=== PATIENT | female | born 1940 | race Caucasian/White ===

== ENCOUNTER 2018-08-19 11:43 | Inpatient (IN) | payer SELFPAY ==
[2018-08-19 12:24] LABS: % BASOPHILS 0.8 % (0.0-2.0); % EOSINOPHILS 0.7 % (0.0-5.0); % LYMPHOCYTES 17.2 % (20.0-50.0); % MONOCYTES 9.3 % (2.0-10.0); BASOPHILE ABSOLUTE 0.1 Th/cumm (0-0.2); EOSINOPHILE ABSOLUTE 0.1 Th/cmm (0.1-0.4); HEMATOCRIT 42.7 % (41.0-60); HEMOGLOBIN 14.1 gm/dL (12-16); LYMPHOCYTE ABSOLUTE 1.4 Th/cmm (1.5-3.0); MEAN CELL VOLUME 86.2 fl (81-100); MEAN CORPUSCULAR HEMOGLOBIN 28.5 pg (27.0-31.0); MEAN CORPUSCULAR HGB CONC 33.1 pg (28.0-36.0); MEAN PLATELET VOLUME 8.1 fl; MONOCYTE ABSOLUTE 0.7 Th/cmm (0.3-1.0); NEUTROPHILE ABSOLUTE 5.7 Th/cmm (1.8-8.0); PLATELET COUNT 450 Th/cmm (150-400); RED BLOOD COUNT 4.95 Mil/cmm (3.80-5.20); RED CELL DISTRIBUTION WIDTH 12.4 % (11.5-20.0)
[2018-08-19] MEDS ORDERED: Metoprolol tartrate 1 mg/ml 5mL Amp IV STA (12:30)
[2018-08-19] MEDS ORDERED: Metoprolol tartrate 1 mg/ml 5mL Amp IV ONE (12:34)
[2018-08-19 12:39] LABS: ALB/GLOB RATIO 1.1 (1.0-1.8); ALBUMIN 3.4 gm/dL (3.7-5.3); ALKALINE PHOSPHATASE 100 U/L (34-104); ANION GAP 15.1 (7.0-16.0); BILIRUBIN,TOTAL 0.4 mg/dL (0.3-1.0); BUN - UREA NITROGEN 13 mg/dL (7-25); CALCIUM SERUM 9.1 mg/dL (8.6-10.3); CARBON DIOXIDE 25.2 mEq/L (21.0-31.0); CHLORIDE 100 mEq/L (98-107); CREATININE - SERUM 0.5 mg/dL (0.6-1.2); GLUCOSE 116 mg/dL (70-105); MAGNESIUM 1.8 mg/dL (1.9-2.7); PHOSPHOROUS 3.5 mg/dL (2.5-5.0); POTASSIUM SERUM 4.3 mEq/L (3.5-5.1); SGOT 16 U/L (13-39); SGPT/ALT 10 U/L (7-52); SODIUM SERUM 136 mEq/L (136-145); TOTAL PROTEIN,SERUM 6.4 gm/dL (6.0-8.3)
--- NOTE | 2018-08-19 12:41 | ED Physician Chart ---
ED Chief Complaint/HPI - Patient Information Date Seen:: 08/19/18 Time Seen:: 12:37 Chief Complaint:: elevated BP History of Present Illness:: elevated BP and coughing up of white phlegm Allergies:: Allergies Allergy/AdvReac Type Severity Reaction Status Date / Time No Known Allergies Allergy Verified 08/19/18 12:08 Vitals:: Vital Signs - 8 hr 08/19/18 08/19/18 08/19/18 11:48 12:24 12:34 Temp 98.8 F 98.8 F HR 114 108 114 RR 26 31 BP 206/80 224/80 O2 Sat % 94 92 Historian:: Patient, Family Member Review:: Nurse's Note Reviewed ED Review of Systems - Review of Systems General/Constitutional: No fever, No chills, No weight loss, Weakness, No diaphoresis, No edema, No loss of appetite Skin: No skin lesions, No rash, No bruising Head: No headache, No light-headedness Eyes: No loss of vision, No pain, No diplopia ENT: No earache, No nasal drainage, No sore throat, No tinnitus Neck: No neck pain, No swelling, No thyromegaly, No stiffness, No mass noted Cardio Vascular: No chest pain, No palpitations, No PND, No orthopnea, No edema Pulmonary: SOB, Cough, Sputum, No wheezing GI: No nausea, No vomiting, No diarrhea, No pain, No melena, No hematochezia, No constipation, No hematemesis G/U: No dysuria, No frequency, No hematuria Musculoskeletal: No bone or joint pain, No back pain, No muscle pain Endocrine: No polyuria, No polydipsia Psychiatric: No prior psych history, No depression, No anxiety, No suicidal ideation Hematopoietic: No bruising, No lymphadenopathy Allergic/Immuno: No urticaria, No angioedema Neurological: No syncope, No focal symptoms, No weakness, No paresthesia, No headache, No seizure, No dizziness, No confusion, No vertigo ED Past Medical History - Past Medical History Obtainable: Yes Past Medical History: HTN Family Medical History - Family Member Mother History Unknown: Yes ED Physical Exam - Physical Examination General/Constitutional: Awake, Well-developed, well-nourished, Alert, GCS 15, Non-toxic appearing, Ambulatory Other Gen/Cons comments:: occasional coughing. slightly elevated respiratory rate. able to talk with full sentences. Head: Atraumatic Eyes: Lids, conjuctiva normal, PERRL, EOMI Skin: Nl inspection, No rash, No skin lesions, No ecchymosis, Well hydrated, No lymphadenopathy ENMT: External ears, nose nl Neck: Nontender, No nuchal rigidity, No stridor Other Respiratory comments:: no breath sounds heard on ED Labs/Radiology/EKG Results - Lab Results Results: Laboratory Tests 08/19/18 12:16 WBC 8.0 RBC 4.95 Hgb 14.1 Hct 42.7 MCV 86.2 MCH 28.5 MCHC Differential 33.1 RDW 12.4 Plt Count 450 H MPV 8.1 Neutrophils % 72.0 Lymphocytes % 17.2 L Monocytes % 9.3 Eosinophils % 0.7 Basophils % 0.8 ED Assessment - Assessment General Assessment: EKG FROM 12:18:41 p.m. reveals a complete white out of the L lung field with a possible pneumothorax of the apex. CXR from my reading: complete white out of left lung with a probable pneumothorax at the left apex. spoke with Dr. Patel application systems administrator who said that he would transfer the patient to a higher level of care since he doesn't know how to manage chest tubes; we do not have a chest surgeon on staff and the patient's blood pressure is critically high at [address] Patel is chief physical therapist. spoke at 12:45 p.m. spoke with [facility] at 12:50 p.m. who asked for paper work to be faxed to them at [phone]. ED Septic Shock - . Is Septic Shock (SBP<90, OR Lactate>4 mmol\L) present?: No - <6hrs of presentation: Vital Signs: Vital Signs - 8 hr 08/19/18 08/19/18 08/19/18 11:48 12:24 12:34 Temp 98.8 F 98.8 F HR 114 108 114 RR 26 31 BP 206/80 224/80 O2 Sat % 94 92 ED Reassessment (Disposition) - Reassessment Reassessment Condition:: Improved - Diagnosis Diagnosis:: Malignant hypertension Complete white out of left lung field with suspected effusion and left apical pneumothorax. Hypoxia with room air sats of 90%. Thrombocytosis Elevated d-dimer.
[2018-08-19 12:57] LABS: INR 0.94 (0.5-1.4); PROTHROMBIN TIME (TEST) 9.8 SECONDS (9.5-11.5)
[2018-08-19] MEDS ORDERED: IOHEXOL 350mgI/mL 150mL IV ONE (13:40)
[2018-08-19] MEDS ORDERED: cefTRIAXone 1 GM in Sodium Chloride 0.9% 50 ML IV ONE ×2 (14:17→14:53)
[2018-08-19 15:41] LABS: URINE SOURCE MIDSTREAM
[2018-08-19 15:48] LABS: URINE BILIRUBIN NEGATIVE (NEGATIVE); URINE BLOOD NEGATIVE (NEGATIVE); URINE GLUCOSE (UA) NEGATIVE (NEGATIVE); URINE KETONE 40 mg/dL (NEGATIVE); URINE LEUKOCYTE ESTERASE TRACE (NEGATIVE); URINE MICROSCOPIC INDICATED? YES; URINE NITRATE POSITIVE (NEGATIVE); URINE PROTEIN NEGATIVE (NEGATIVE); URINE UROBILINOGEN 0.2 E.U./dL (0.2 - 1.0)
[2018-08-19 15:55] LABS: URINE CLARITY HAZY (CLEAR); URINE COLOR YELLOW
[2018-08-19 15:57] LABS: URINE BACTERIA MANY /hpf (NONE SEEN); URINE EPITHELIAL CELLS FEW /lpf (FEW); URINE RBC 0-2 /hpf (0-5)
[2018-08-19] MEDS: Hydrocodone/APAP 5mg/325mg Tab PO PRN (16:37)
[2018-08-19] MEDS: Morphine Sulfate 2 mg/mL 1mL Syr IVP PRN (21:09)
[2018-08-20] MEDS: Morphine Sulfate 2 mg/mL 1mL Syr IVP PRN ×2 (01:13→22:23)
[2018-08-20] MEDS ORDERED: IOHEXOL 300mgI/mL 100 ML VIAL ONE (07:15)
--- NOTE | 2018-08-20 07:41 | Diagnostic Imaging Report ---
Exam: Portable chest x-ray HISTORY: Shortness of breath. Findings: Portable examination of the chest at 1227 reviewed, no prior studies available for comparison. The study demonstrates complete opacification left hemithorax with the pneumonia atelectasis and or pleural effusion. Clinical correlation recommended. A small lucency in the right apex might be related to small pneumothorax. The right lung parenchyma is well aerated. Bony thorax intact. Mediastinal structures midline IMPRESSION: Complete opacification left hemithorax might be due to atelectasis pneumonia or superimposed effusion. Small lucency in the right apex might represent loculated pneumothorax. Clinical correlation recommended.
--- NOTE | 2018-08-20 07:46 | Diagnostic Imaging Report ---
Exam: CTA examination of the chest. HISTORY: Shortness of breath, pulmonary embolism Total DLP equals 219 CTDI equals 5.8 Findings: Multiple contiguous thin section of the chest were obtained with administration of contrast material per pulmonary artery embolus protocol. The study demonstrates a normal opacification of great vessels of the neck. The pulmonary parenchyma demonstrates complete opacification of the left hemithorax with large left pleural effusion compressive atelectasis and collapse pneumonia. The pulmonary vasculature demonstrates normal opacification of pulmonary arteries bilaterally. There is no evidence of pulmonary emboli. The right lung parenchyma is well aerated. Bony thorax is intact. The visualized upper abdomen is intact. IMPRESSION: No evidence of pulmonary emboli, almost complete opacification left hemithorax effusion atelectasis and pneumonia. Clinical correlation recommended.
--- NOTE | 2018-08-20 07:53 | Diagnostic Imaging Report ---
Exam: Portable chest x-ray HISTORY: Placement of the left chest tube COMPARISON: 08/19/2018 Findings: Portable summation of chest at 1633 hours reviewed and compared to the prior study the same day earlier, demonstrates left-sided pneumothorax approximately 50%. Left chest tube is noted extending across the midline. Clinical correlation and repositioning of the chest tube is recommended. Overall there is decrease in left-sided pleural effusion described on prior examination. The right lung parenchyma is well aerated. Mediastinal structures midline the heart is not enlarged. Bony thorax intact. IMPRESSION. Consolidation pneumonia with collapse left lung is approximately 50% pneumothorax. Left chest tube is noted coursing midline. Repositioning of chest tube is recommended.
[2018-08-20] MEDS ORDERED: Pneumococcal Vaccine 0.5 mL Vial IM ONE (09:00)
[2018-08-20] MEDS ORDERED: Influenza Vaccine (65 yr & older) 0.5 ml Syr IM ONE (09:00)
--- NOTE | 2018-08-20 10:01 | Diagnostic Imaging Report ---
CT Chest without IV contrast HISTORY: Pleural effusion COMPARISON: CT of the chest performed on 08/19/2018. Technique: Axial images were obtained from the base of the neck to the upper abdomen without IV contrast. Reconstructions were made. Total DLP 163, CTD I 4.9 Findings: Borderline prominent mediastinal lymph nodes are noted. There is significant decrease in size of left pleural effusion. A new left-sided chest tube has been placed entering the left lateral lung and terminating along the anterior/medial aspect of the left thorax adjacent to the prevascular space. There is estimated at 15-20% left anterior pneumothorax along the tract of patient's chest tube. There is a very large area of ill-defined consolidation throughout the left upper lobe measuring 10.2 x 6.3 cm encasing the left hilum and vasculature and bronchi with mass effect upon the bronchi and postobstructive consolidation and pneumonia in this region. Additional left lung infiltrates are noted. Small left effusion is also noted. Ill-defined right basal irregular pleural thickening is also noted. There is also a 7 mm nodule right lung base (image 53, series 4). Mild cardiomegaly is noted with mild atherosclerosis. There is elevation of the right hemidiaphragm. Subcutaneous emphysema along the left lateral chest wall is noted. Degenerative changes of the spine are noted. There is probable developing Schmorl's node along the inferior endplate of the T11 vertebral body The upper abdomen demonstrate atherosclerosis. There appears to be vicarious excretion of contrast into the gallbladder. IMPRESSION: Interval new left-sided chest tube placement with significant decrease in previous large left pleural effusion. There is associated left anterior pneumothorax measuring up to 15 to 20%. The left chest tube terminates along the area of the pneumothorax along the anterior/medial lung zone with tip adjacent to the prevascular space. Very large ill defined area of consolidation and irregularity throughout the left upper lobe encasing the left hilum and vasculature and bronchi most suggestive of malignancy. Additional left upper lobe infiltrates are also noted. Irregular areas of right basal pleural thickening which may be due to infectious or neoplastic process. 7 mm right basal nodule is also noted which is nonspecific however malignancy cannot be excluded. Small left pleural effusion. Subcutaneous emphysema along the left lateral chest wall due to patient's chest tube placement. Borderline prominent mediastinal lymph nodes. Mild cardiomegaly and mild atherosclerotic vascular disease.
--- NOTE | 2018-08-20 10:02 | Diagnostic Imaging Report ---
CHEST X-RAY: AP view INDICATION: Pleural effusion COMPARISON: Chest CT earlier the same day FINDINGS: Left chest tube has been slightly pulled back with decrease in size of left pneumothorax. Extensive left lung infiltrates and mass lesion is again noted with small left effusion. Cardiomegaly is noted. IMPRESSION: Left chest tubes has been slightly pulled back. There is decreasing left-sided pneumothorax with probable residual pneumothorax along the left apex estimated at 20% Left lung mass and infiltrates. Please refer to recent CT for further details.
[2018-08-20] MEDS ORDERED: Albuterol Nebulizer 2.5mg/3mL HHN PRN (17:39)
[2018-08-20] MEDS ORDERED: Albuterol Nebulizer 2.5mg/3mL HHN SCH (19:00)
--- NOTE | 2018-08-20 19:05 | Consultation ---
DATE OF CONSULTATION: 08/19/2018 PULMONARY/CRITICAL CARE CONSULTATION NOTE REASON FOR CONSULTATION: Abnormal chest x-ray. HISTORY OF PRESENT ILLNESS: This is a 78-year-old female who only speaks Armenian. Most of the information is obtained by talking to the patient's granddaughter was fixing list has been having shortness of breath for the last couple of weeks. Over the time, she got more worse. The patient was coughing, but nonproductive. Denied of any chest pain. No fever. Does not recall of any significant change in weight. Denied of any wheezing. Denied of any night sweats. Denied of any swelling of the legs, denied of any palpitation, denied of any hemoptysis or denied of any back pain, etc. Subsequently, the patient came to the Emergency Room, where the patient was evaluated. There was a large pleural effusion on the left side. Subsequently admitted and I was asked to see this patient for further care and necessary treatment. PAST MEDICAL HISTORY: Nil. ALLERGIES: Nil. MEDICATIONS: Some antitussive medication and not taking any regular medicine for systemic illness. ALLERGIC HISTORY: Nil. SOCIAL HISTORY: Still smoking. PHYSICAL EXAMINATION: GENERAL: This is an elderly looking female, awake, alert, oriented, and comfortable. Chest tube in the right side. VITAL SIGNS: Temperature is 99.1, her pulse is in the 80s, blood pressure 118/86, respirations in low 20s, saturation 99 on 2 liters per minute. HEENT: Head is essentially unremarkable. Pupils appears to be equal and reactive to light. Oral cavity shows small oropharyngeal opening. NECK: No palpable nodes in the neck could be palpated. JVP not visualized. CHEST: Shows a chest tube on the left side. On auscultation, there is a diminished air entry. There is some air leak through the chest tube in the Pleur-evac. Right side appears to be clear. HEART: Slightly tachycardic. ABDOMEN: Soft, nontender. EXTREMITIES: Shows no peripheral edema, no cyanosis or clubbing could be appreciated. LABORATORY DATA: The patient's pertinent laboratory studies, WBC is 8000, platelets 450, D-dimer is 1600. Creatinine is 0.2. Sugar is 116. BNP is 128, albumin is 3.4 and the urine nitrite is positive and urine does show multiple bacteria. Chest x-ray reviewed ____ appears to be possibly significant consolidation, question is pneumonia versus possibly neoplasm. PLANS AND SUGGESTIONS: We will go ahead and continue chest tube drainage, supportive care, okay to be in the regular floor with a pleurovac suctioning. We will await for cytology from the ____ and also the cultures, etc. and see what that shows pending further recommendation will be issued and go from there. JOB# [id number]
[2018-08-20] MEDS: Budesonide 0.5 Mg/2 mL Ud HHN SCH (19:18)
[2018-08-20] MEDS: Albuterol/Ipratropium Neb 3 ML AERS HHN SCH (19:19)
--- NOTE | 2018-08-21 01:03 | History & Physical ---
ADMIT DATE: 08/19/2018 ICU bed 9. CHIEF COMPLAINT: Shortness of breath. HISTORY OF PRESENT ILLNESS: A 78-year-old female with prior history of hypertension, who lives at home, was brought to Emergency Room for evaluation of shortness of breath. The patient is predominantly Hebrew speaking. I used the Hebrew speaking nursing staff for communications. The patient stated that she has been sick for the past few days. The patient did say that she tried some [id number] medications for cough, congestion, did not help; in fact progressively her condition got worse. So, the patient was brought to Emergency Room. Emergency Room evaluation, the patient noted to have large pleural effusions with consolidations or possible empyema. The patient was seen by cardiothoracic surgeon. She had a chest tube placement and subsequently admitted to ICU for further evaluation and treatment. The patient says she feels better than she came in with, still denies any trouble breathing. No chest pain, no fever, no palpitations, no dizziness, no nausea, no vomiting or other complaints. PAST MEDICAL HISTORY: Hypertension. PAST SURGICAL HISTORY : No significant past surgical history reported FAMILY HISTORY: Noncontributory. SOCIAL HISTORY: Lives at home. Denies any alcohol, tobacco, or any drug use. CURRENT MEDICATIONS: Per medication list. ALLERGIES: No known drug allergies. REVIEW OF SYSTEMS: As are HPI, 12-point system review is negative. PHYSICAL EXAMINATION: VITAL SIGNS: Temperature 99.3, pulse 86, respirations 20, blood pressure of 115/57, 98% with nasal cannula 2 liters. GENERAL APPEARANCE: This patient does not seem in acute distress, lying comfortably in bed. HEENT: No neck stiffness. Negative for JVD. CHEST: Bilateral rales noted. Decreased air entry, left side. HEART: S1, S2 normal. Regular rhythm. ABDOMEN: Soft, nontender. NEUROLOGIC: Grossly non focal EXTREMITIES: No edema. Good peripheral pulses, negative for any calf tenderness. Negative for any lower extremities cellulite. LABORATORY DATA: WBC is 8.0, hemoglobin 14, hematocrit is 42.7, platelet count is 450. PT 9 and INR 0.9. D-dimer 1600. Sodium 130, potassium 4.3, BUN 3.5, calcium 9.1, AST 16, ALT 10, albumin 3.0 and positive for nitrite, trace leukocyte esterase, bacteria many. ASSESSMENT: 1. Large right pleural effusions. 2. Pneumonia. 3. Urinary tract infection. 4. Hypertension. PLAN: The patient had a chest tube placement. Pleural fluid was drained and sent for pathology and other microbiology testing. We will follow up on the final cytology and microbiology results. The patient is on empiric antibiotic, breathing treatment including albuterol and inhaled cortisol will be given. The patient was seen by CT surgery and thermodynamics teacher. Follow up labs and chest x-ray. CT angio was done and negative for any PE. CT chest, right-sided consolidation with pleural effusions, possible malignancy. The patient was started on beta samuel and hydralazine IV, admitted for high blood pressures. Discussed with the patient regarding the condition and plan of care with nursing staff. JOB# [id number] MTDJeana
[2018-08-21 04:32] LABS: % BASOPHILS 0.6 % (0.0-2.0); % EOSINOPHILS 2.8 % (0.0-5.0); % LYMPHOCYTES 18.6 % (20.0-50.0); % MONOCYTES 10.9 % (2.0-10.0); % NEUTROPHILS 67.1 % (40.0-80.0); BASOPHILE ABSOLUTE 0.1 Th/cumm (0-0.2); EOSINOPHILE ABSOLUTE 0.3 Th/cmm (0.1-0.4); HEMATOCRIT 42.5 % (41.0-60); HEMOGLOBIN 13.6 gm/dL (12-16); LYMPHOCYTE ABSOLUTE 1.7 Th/cmm (1.5-3.0); MEAN CELL VOLUME 86.8 fl (81-100); MEAN CORPUSCULAR HEMOGLOBIN 27.9 pg (27.0-31.0); MEAN CORPUSCULAR HGB CONC 32.1 pg (28.0-36.0); MEAN PLATELET VOLUME 8.5 fl; NEUTROPHILE ABSOLUTE 6.3 Th/cmm (1.8-8.0); PLATELET COUNT 438 Th/cmm (150-400); RED CELL DISTRIBUTION WIDTH 12.9 % (11.5-20.0); WHITE BLOOD COUNT 9.4 Th/cmm (4.8-10.8)
[2018-08-21 05:09] LABS: ALBUMIN 2.8 gm/dL (3.7-5.3); ALKALINE PHOSPHATASE 75 U/L (34-104); ANION GAP 14.7 (7.0-16.0); BILIRUBIN,TOTAL 0.4 mg/dL (0.3-1.0); BUN - UREA NITROGEN 23 mg/dL (7-25); CALCIUM SERUM 8.8 mg/dL (8.6-10.3); CARBON DIOXIDE 24.4 mEq/L (21.0-31.0); CHLORIDE 106 mEq/L (98-107); CREATININE - SERUM 0.7 mg/dL (0.6-1.2); GLUCOSE 105 mg/dL (70-105); POTASSIUM SERUM 4.1 mEq/L (3.5-5.1); SGOT 17 U/L (13-39); SGPT/ALT 9 U/L (7-52); SODIUM SERUM 141 mEq/L (136-145); TOTAL PROTEIN,SERUM 5.6 gm/dL (6.0-8.3)
[2018-08-21] MEDS: Albuterol/Ipratropium Neb 3 ML AERS HHN SCH ×4 (06:45→18:43)
[2018-08-21] MEDS: Pantoprazole 40 mg EC Tab PO SCH (06:57)
[2018-08-21] MEDS: Morphine Sulfate 2 mg/mL 1mL Syr IVP PRN ×3 (06:57→22:36)
[2018-08-21] MEDS: Budesonide 0.5 Mg/2 mL Ud HHN SCH ×2 (07:08→19:06)
--- NOTE | 2018-08-21 08:10 | Diagnostic Imaging Report ---
Exam: Portable chest x-ray HISTORY: Left chest tube insertion. Prior exam: 0 2 0/ 19 Findings: Portable examination of the chest at 0 724 demonstrates left-sided apical pneumothorax approximately 20-30%. Left chest tube again noted unchanged in appearance when compared to prior examination day earlier. The congestion has decreased. IMPRESSION: Left upper lobe pneumothorax increased to 20-30%, despite of left chest tube. Consolidation left lung. Decrease in congestion. Clinical correlation and repositioning of chest tube might be helpful.
[2018-08-21] MEDS: Hydrocodone/APAP 5mg/325mg Tab PO PRN (08:29)
[2018-08-21 09:38] LABS: ALLEN TEST Y
--- NOTE | 2018-08-21 13:52 | Consultation ---
DATE OF CONSULTATION: 08/19/2018 SURGEON: Dr. Gio Dias. REFERRING PHYSICIAN: Dr. Patel. HISTORY OF PRESENT ILLNESS: The patient is a 78-year-old female who presented to [facility] complaining of shortness of breath. Workup including a chest CT scan demonstrated a large left-sided pleural effusion with a complete left lung atelectasis. Thoracic Surgery was then consulted for further evaluation. PAST MEDICAL HISTORY: Notable for hypertension. PAST SURGICAL HISTORY: Notable for a hysterectomy. ALLERGIES: The patient has no known drug allergies. MEDICATIONS: Reviewed. FAMILY HISTORY AND SOCIAL HISTORY: The patient is from [place] and she lives with her family in [place], [place]. PHYSICAL EXAMINATION: VITAL SIGNS: She is noted to be afebrile. Her vitals are within normal limits. CARDIAC: Regular rate and rhythm. No gallop or murmur. RESPIRATORY: Clear to auscultation on the right with decreased crackles noted on the left. ABDOMEN: Soft, nondistended, nontender with normoactive bowel sounds. EXTREMITIES: No evidence of cyanosis, clubbing or edema. LABORATORY STUDIES: Performed on 08/19/2018, showed WBC of 8.0, hemoglobin 14, hematocrit of 42 and a platelet count of [address] scan demonstrated a complete left lung atelectasis with a large left-sided pleural effusion. There is no evidence of pulmonary embolism. ASSEMENT AND PLAN: This is a 78-year-old female who presented to the Emergency Room at [facility] with a large left-sided pleural effusion. The patient was evaluated at the bedside. After reviewing the clinical database, I will proceed to place a left chest tube for decompression. Thank you for referring this patient to my attention. If there are any questions in regards to this patient's clinical care, please do not hesitate to contact me. JOB# [id number]
--- NOTE | 2018-08-21 13:52 | Operative Report ---
DATE OF SURGERY: 08/19/2018 PREOPERATIVE DIAGNOSIS: Left pleural effusion. POSTOPERATIVE DIAGNOSIS: Left pleural effusion. PROCEDURE PERFORMED: 1. Left thoracostomy. 2. Intercostal nerve block. The patient is a 78-year-old female who presented to the Emergency Room at [facility] complaining of shortness of breath. Workup including a chest CT scan demonstrated large pleural effusion and thoracic Surgery was then consulted for placement of a chest tube. After obtaining informed consent, the patient was then placed in the right lateral decubitus position and prepped and draped in the usual sterile fashion. A 40 mL of 1% lidocaine was used to perform the local anesthesia in the usual fashion. A 1 cm incision was made at the fourth intercostal space mid axillary line. Dissection was then carried down to the subcutaneous tissue. Entry into the left hemithorax was uneventful and a 28-Martiniquais chest tube was inserted towards the apex. The chest tube was anchored at the skin level using 2-0 silk suture and a dry dressing was applied. Immediately 2 liters out was evacuated and the chest tube was then clamped. A portion of this pleural effusion was submitted for microbiologic analysis and then remaining was submitted for cytology. The chest tube was clamped for 2-3 hours to allow equilibration. After 3-4 hours the chest tube was then reopened to drain an additional 500 mL at a given time. The patient tolerated the procedure well without any complications. Currently, she is awaiting for chest x-ray. [facility]# [id number] DOMINIC
--- NOTE | 2018-08-21 14:33 | Progress Notes ---
DATE: 08/21/2018 PULMONARY PROGRESS NOTE PROBLEM: 1. Left-sided lesion with a massive degree of effusion. 2. Suspect cancer. SYMPTOMS: Slight discomfort in the chest. Otherwise, no specific new symptomatology. PHYSICAL EXAMINATION: VITAL SIGNS: Temperature is 96.8, blood pressure 161/63, saturation is 95% on 2 liters. NECK: Veins not visualized. CHEST: Shows diminished air entry at bases. Still slight leak in the Pleur-Evac. IMAGING STUDIES: Chest x-ray shows some cicatricial changes with small local pneumothorax with some left upper lobe lesion. ASSESSMENT: Most likely this is cancer, doubt pneumonia. PLANS AND SUGGESTIONS: Discussed with Dr. Dias and I agree with CT-guided biopsy and okay to move to the step-down unit. JOB# [id number]
--- NOTE | 2018-08-21 20:50 | General Progress Note ---
Subjective - Review of Systems Service Date: 08/21/18 Subjective: Patient doing better denied any complaints family was at the bedside Objective - Results Result Diagrams: 08/21/18 04:15 08/21/18 04:15 Recent Labs: Laboratory Last Values WBC 9.4 Th/cmm (4.8-10.8) 08/21/18 04:15 RBC 4.90 Mil/cmm (3.80-5.20) 08/21/18 04:15 Hgb 13.6 gm/dL (12-16) 08/21/18 04:15 Hct 42.5 % (41.0-60) 08/21/18 04:15 MCV 86.8 fl (81-100) 08/21/18 04:15 MCH 27.9 pg (27.0-31.0) 08/21/18 04:15 MCHC Differential 32.1 pg (28.0-36.0) 08/21/18 04:15 RDW 12.9 % (11.5-20.0) 08/21/18 04:15 Plt Count 438 Th/cmm (150-400) H 08/21/18 04:15 MPV 8.5 fl 08/21/18 04:15 Neutrophils % 67.1 % (40.0-80.0) 08/21/18 04:15 Lymphocytes % 18.6 % (20.0-50.0) L 08/21/18 04:15 Monocytes % 10.9 % (2.0-10.0) H 08/21/18 04:15 Eosinophils % 2.8 % (0.0-5.0) 08/21/18 04:15 Basophils % 0.6 % (0.0-2.0) 08/21/18 04:15 PT 9.8 SECONDS (9.5-11.5) 08/19/18 12:16 INR 0.94 (0.5-1.4) 08/19/18 12:16 PTT (Actin FS) 27.0 SECONDS (26.0-38.0) 08/19/18 12:16 D-Dimer 1600 ng/mL (100-400) H 08/19/18 12:16 Specimen Source ARTERIAL 08/21/18 09:20 Sample Site Right Radial 08/21/18 09:20 pH 7.40 (7.35-7.45) 08/21/18 09:20 pCO2 41.0 mmHg (35.0-45.0) 08/21/18 09:20 pO2 90.0 mmHg (80.0-100.0) 08/21/18 09:20 HCO3 25.0 mEq/L (20.0-26.0) 08/21/18 09:20 Base Excess 0.4 mEq/L (-3.0-3.0) 08/21/18 09:20 O2 Saturation 97.0 % (92.0-100.0) 08/21/18 09:20 James Test Y 08/21/18 09:20 Vent Rate N/A 08/21/18 09:20 Inspired O2 28 08/21/18 09:20 Tidal Volume N/A 08/21/18 09:20 PEEP N/A 08/21/18 09:20 Pressure (ins/psv/peep) N/A 08/21/18 09:20 Critical Value D.THOMPSON 08/21/18 09:20 Sodium 141 mEq/L (136-145) 08/21/18 04:15 Potassium 4.1 mEq/L (3.5-5.1) 08/21/18 04:15 Chloride 106 mEq/L (98-107) 08/21/18 04:15 Carbon Dioxide 24.4 mEq/L (21.0-31.0) 08/21/18 04:15 Anion Gap 14.7 (7.0-16.0) 08/21/18 04:15 BUN 23 mg/dL (7-25) 08/21/18 04:15 Creatinine 0.7 mg/dL (0.6-1.2) 08/21/18 04:15 Est GFR ( Amer) TNP 08/21/18 04:15 Est GFR (Non-Af Amer) TNP 08/21/18 04:15 BUN/Creatinine Ratio 32.9 08/21/18 04:15 Glucose 105 mg/dL (70-105) 08/21/18 04:15 Whole Bld Lactic Acid 1.10 mmol/L (0.60-1.99) 08/19/18 12:16 Calcium 8.8 mg/dL (8.6-10.3) 08/21/18 04:15 Phosphorus 3.5 mg/dL (2.5-5.0) 08/19/18 12:16 Magnesium 1.8 mg/dL (1.9-2.7) L 08/19/18 12:16 Total Bilirubin 0.4 mg/dL (0.3-1.0) 08/21/18 04:15 AST 17 U/L (13-39) 08/21/18 04:15 ALT 9 U/L (7-52) 08/21/18 04:15 Alkaline Phosphatase 75 U/L (34-104) 08/21/18 04:15 Troponin I 0.01 ng/mL (0.01-0.05) 08/19/18 12:16 B-Natriuretic Peptide 128.0 pg/mL (5.0-100.0) H 08/19/18 12:16 Total Protein 5.6 gm/dL (6.0-8.3) L 08/21/18 04:15 Albumin 2.8 gm/dL (3.7-5.3) L 08/21/18 04:15 Globulin 2.8 gm/dL 08/21/18 04:15 Albumin/Globulin Ratio 1.0 (1.0-1.8) 08/21/18 04:15 Carcinoembryonic Ag 5.6 ng/mL (0.0-4.7) H 08/20/18 19:27 Urine Source MIDSTREAM 08/19/18 15:30 Urine Color YELLOW 08/19/18 15:30 Urine Clarity HAZY (CLEAR) 08/19/18 15:30 Urine pH 7.0 (4.6 - 8.0) 08/19/18 15:30 Ur Specific [place] 1.010 (1.005-1.030) 08/19/18 15:30 Urine Protein NEGATIVE mg/dL (NEGATIVE) 08/19/18 15:30 Urine Glucose (UA) NEGATIVE mg/dL (NEGATIVE) 08/19/18 15:30 Urine Ketones 40 mg/dL (NEGATIVE) H 08/19/18 15:30 Urine Blood NEGATIVE (NEGATIVE) 08/19/18 15:30 Urine Nitrate POSITIVE (NEGATIVE) H 08/19/18 15:30 Urine Bilirubin NEGATIVE (NEGATIVE) 08/19/18 15:30 Urine Urobilinogen 0.2 E.U./dL (0.2 - 1.0) 08/19/18 15:30 Ur Leukocyte Esterase TRACE (NEGATIVE) H 08/19/18 15:30 Urine RBC 0-2 /hpf (0-5) 08/19/18 15:30 Urine WBC 6-10 /hpf (0-5) H 08/19/18 15:30 Ur Epithelial Cells FEW /lpf (FEW) 08/19/18 15:30 Urine Bacteria MANY /hpf (NONE SEEN) H 08/19/18 15:30 - Physical Exam Vitals and I&O: Vital Signs Temp 98.7 F 08/21/18 20:00 Pulse 84 08/21/18 20:00 Resp 20 08/21/18 20:00 BP 153/52 08/21/18 20:00 Pulse Ox 99 08/21/18 20:00 Intake & Output 08/21/18 08/21/18 08/22/18 06:59 18:59 06:59 Intake Total 320 600 Output Total 530 60 Balance -210 540 Weight (lbs) 51.256 kg 51.256 kg Intake: Intake, IV Amount 200 100 Piperacillin Sodium/ 200 100 Tazobact 4.5 gm In Sodium Chloride 0.9% 100 ml @ 100 mls/hr IV Q8HR [facility] Rx #:[id number] Oral 120 500 Output: Chest Tube Drainage 30 60 Left Lateral Chest 30 60 Urine 500 Other: # Voids 3 1 # Bowel Movements 0 0 Weight Source Bedscale Bedscale Active Medications: Current Medications Acetaminophen/Hydrocodone Bitart ([place] 5mg/325mg) 1 tab PO Q4H PRN PRN Reason: Pain (Moderate) Stop: 10/18/18 16:13 Last Admin: 08/21/18 08:29 Dose: 1 tab Albuterol Sulfate (Albuterol 2.5mg/3ml Neb Ud) 2.5 mg HHN Q2H PRN PRN Reason: Respiratory Distress Stop: 10/19/18 17:38 Last Admin: 08/20/18 19:17 Dose: 2.5 mg Albuterol/Ipratropium (Duoneb Neb) 3 ml HHN [id number] [facility] Stop: 10/19/18 18:59 Last Admin: 08/21/18 18:43 Dose: 3 ml Budesonide (Pulmicort) 0.5 mg HHN BIDRT [facility] Stop: 10/19/18 18:59 Last Admin: 08/21/18 19:06 Dose: 0.5 mg Hydralazine HCl (Apresoline 20 Mg/Ml) 10 mg IV Q6HR PRN PRN Reason: SBP ABOVE 170 Stop: 10/19/18 17:33 Last Admin: 08/21/18 06:08 Dose: 10 mg Piperacillin Sod/Tazobactam (Sod 4.5 gm/ Sodium Chloride) 100 mls @ 100 mls/hr IV Q8HR [facility] Stop: 10/19/18 13:59 Last Admin: 08/21/18 20:43 Dose: 100 mls/hr Metoprolol Tartrate (Lopressor) 25 mg PO BID [facility] Stop: 10/19/18 17:44 Last Admin: 08/21/18 17:06 Dose: 25 mg Morphine Sulfate (Morphine) 2 mg IVP Q4HR PRN PRN Reason: Pain (Severe) Stop: 10/18/18 20:41 Last Admin: 08/21/18 17:06 Dose: 2 mg Pantoprazole Sodium (Protonix) 40 mg PO QDAC [facility] Stop: 10/20/18 07:29 Last Admin: 08/21/18 06:57 Dose: 40 mg General: Alert Cardiovascular: Regular rate Lungs: Other (rales) Assessment/Plan - Assessment Assessment: Pneumonia Pleural effusion HTN Left Lung mass - Plan Plan: CT guided biopsy Continue antibiotics Monitor BP TELEUNIT transfer
[2018-08-22] MEDS: Hydrocodone/APAP 5mg/325mg Tab PO PRN ×2 (01:49→15:54)
[2018-08-22] MEDS: Pantoprazole 40 mg EC Tab PO SCH (06:42)
[2018-08-22] MEDS: Budesonide 0.5 Mg/2 mL Ud HHN SCH ×2 (07:22→19:22)
[2018-08-22] MEDS: Albuterol/Ipratropium Neb 3 ML AERS HHN SCH ×4 (07:23→19:11)
--- NOTE | 2018-08-22 08:23 | Diagnostic Imaging Report ---
Exam: Examination portable chest HISTORY: Follow-up pneumonia Findings: Portable examination of the chest at 0736 hours reviewed and compared to the prior examination day earlier demonstrates reexpansion of previously described left-sided pneumothorax. There is evidence for increased in subcutaneous soft tissue emphysema on the left side. Left chest tube is noted unchanged in position. Again noted left-sided infiltrate. Small left pleural effusions present. The right lung parenchyma demonstrates mild right precardinal infiltrate. IMPRESSION: Reexpansion of the previously described left-sided pneumothorax with increase of subcutaneous soft tissue emphysema over the left chest wall. Unchanged position left chest tube Left-sided pneumonia and small effusion. Mild right basilar pericardial infiltrate
[2018-08-22 10:09] LABS: INR 0.96 (0.5-1.4)
[2018-08-22 10:16] LABS: ALBUMIN 2.7 gm/dL (3.7-5.3); ALKALINE PHOSPHATASE 68 U/L (34-104); ANION GAP 13.3 (7.0-16.0); BILIRUBIN,TOTAL 0.4 mg/dL (0.3-1.0); BUN - UREA NITROGEN 27 mg/dL (7-25); CALCIUM SERUM 8.6 mg/dL (8.6-10.3); CARBON DIOXIDE 25.7 mEq/L (21.0-31.0); CHLORIDE 106 mEq/L (98-107); CREATININE - SERUM 0.6 mg/dL (0.6-1.2); GLUCOSE 121 mg/dL (70-105); SGOT 14 U/L (13-39); SGPT/ALT 9 U/L (7-52); SODIUM SERUM 141 mEq/L (136-145); TOTAL PROTEIN,SERUM 5.5 gm/dL (6.0-8.3)
[2018-08-22 10:57] LABS: % BASOPHILS 0.5 % (0.0-2.0); % EOSINOPHILS 2.9 % (0.0-5.0); % LYMPHOCYTES 15.9 % (20.0-50.0); % MONOCYTES 8.7 % (2.0-10.0); EOSINOPHILE ABSOLUTE 0.3 Th/cmm (0.1-0.4); HEMATOCRIT 39.9 % (41.0-60); LYMPHOCYTE ABSOLUTE 1.4 Th/cmm (1.5-3.0); MEAN CELL VOLUME 86.5 fl (81-100); MEAN CORPUSCULAR HEMOGLOBIN 28.3 pg (27.0-31.0); MEAN CORPUSCULAR HGB CONC 32.7 pg (28.0-36.0); MONOCYTE ABSOLUTE 0.8 Th/cmm (0.3-1.0); NEUTROPHILE ABSOLUTE 6.2 Th/cmm (1.8-8.0); PLATELET COUNT 429 Th/cmm (150-400); RED BLOOD COUNT 4.61 Mil/cmm (3.80-5.20); WHITE BLOOD COUNT 8.7 Th/cmm (4.8-10.8)
[2018-08-22 11:16] LABS: CA 125 (OVARIAN) SEE REF. LAB REPORT; CA 19-9 (PANCREATIC) SEE REF. LAB REPORT; CA 27.29 (BREAST) SEE REF. LAB REPORT
[2018-08-22] MEDS: Morphine Sulfate 2 mg/mL 1mL Syr IVP PRN ×2 (12:12→21:43)
--- NOTE | 2018-08-22 14:16 | Pathology Report ---
[id number] Collection Date: 08/21/2018 Surgeon: Dr. Gio Dias Specimen Description: Left pleural effusion for cytology. Gross Description: Received in a large plastic container is approximately 2 liters of dark orange-brown watery fluid. A customer response representative portion is submitted for cytology processing. Microscopic Description: Examination of two cytospins and one cell block shows blood admixed with inflammatory cells with scattered clusters of highly atypical cells present. These atypical cells form cohesive clusters of 6 to 12 atypical cuboidal and columnar cells that show nuclear enlargement and pleomorphism as well as prominent nucleoli. Many of the cells have abundant eosinophilic cytoplasm as well as vacuolated cytoplasm. Diagnosis: Malignant appearing cells present consistent with metastatic adenocarcinoma (Non-small cell carcinoma). Comment: The cytology shows a malignant pleural effusion, which would indicate a Stage IV metastatic lung carcinoma (see left lung biopsy report#[id number]). These findings are discussed with Dr. Octaviano Choudhary and Dr. Gio Dias. JOB# [id number]
--- NOTE | 2018-08-22 14:45 | Diagnostic Imaging Report ---
Left lung biopsy (CT guided) HISTORY: Left lung mass Using CT guidance and sterile technique, 2 18-gauge core biopsy specimens were obtained from a previous described parenchymal density within the left upper lobe. Following the procedure, there is an approximate 20% pneumothorax within the left upper hemithorax. Left chest tube noted. Persistent left pleural effusion. IMPRESSION: 1. Left lung biopsy as noted above. 2. Slight increase in a left pneumothorax and left pleural effusion since the exam of August 20, 2018.
--- NOTE | 2018-08-22 14:59 | Progress Notes ---
DATE: 08/22/2018 PULMONARY PROGRESS NOTE PROBLEM LIST: 1. Left-sided pleural effusion with chest tube. 2. Possibly lesion, left upper lobe, CT-guided biopsy was done today. PHYSICAL EXAMINATION: GENERAL: The patient is awake, alert, comfortable, in no respiratory distress, etc. VITAL SIGNS: The patient's recorded vitals: Temperature earlier 98.1, heart rate is in 90s, blood pressure 196/70, saturation on 2 liters is in mid 90s. NECK: Veins not visualized. CHEST: Shows diminished air entry at the bases. HEART: Regular. ABDOMEN: Soft, nontender. DIAGNOSTIC DATA: Chest x-ray shows chest tube is kinked, but is in the lower thoracic edge. The patient's other laboratory studies: White count is 8.7, hemoglobin 13 grams and rest of the other laboratory studies essentially unremarkable with BUN is 27. ASSESSMENT: The patient clinically status quo, not too much change with pathology on the left upper lobe, question cancer slightly elevated CA 27. Rest of the tumor markers normal. PLANS AND SUGGESTIONS: Discussed with the nursing staff, okay to go to the regular floor. We will repeat chest x-ray tomorrow. JOB# [id number]
--- NOTE | 2018-08-22 16:20 | General Progress Note ---
Subjective - Review of Systems Service Date: 08/22/18 Subjective: Patient doing better denied any complaints s/p CT guided biopsy today Objective - Results Result Diagrams: 08/22/18 09:40 08/22/18 09:40 Recent Labs: Laboratory Last Values WBC 8.7 Th/cmm (4.8-10.8) 08/22/18 09:40 RBC 4.61 Mil/cmm (3.80-5.20) 08/22/18 09:40 Hgb 13.0 gm/dL (12-16) 08/22/18 09:40 Hct 39.9 % (41.0-60) L 08/22/18 09:40 MCV 86.5 fl (81-100) 08/22/18 09:40 MCH 28.3 pg (27.0-31.0) 08/22/18 09:40 MCHC Differential 32.7 pg (28.0-36.0) 08/22/18 09:40 RDW 13.0 % (11.5-20.0) 08/22/18 09:40 Plt Count 429 Th/cmm (150-400) H 08/22/18 09:40 MPV 9.0 fl 08/22/18 09:40 Neutrophils % 72.0 % (40.0-80.0) 08/22/18 09:40 Lymphocytes % 15.9 % (20.0-50.0) L 08/22/18 09:40 Monocytes % 8.7 % (2.0-10.0) 08/22/18 09:40 Eosinophils % 2.9 % (0.0-5.0) 08/22/18 09:40 Basophils % 0.5 % (0.0-2.0) 08/22/18 09:40 PT 10.0 SECONDS (9.5-11.5) 08/22/18 09:40 INR 0.96 (0.5-1.4) 08/22/18 09:40 PTT (Actin FS) 27.0 SECONDS (26.0-38.0) 08/19/18 12:16 D-Dimer 1600 ng/mL (100-400) H 08/19/18 12:16 Specimen Source ARTERIAL 08/21/18 09:20 Sample Site Right Radial 08/21/18 09:20 pH 7.40 (7.35-7.45) 08/21/18 09:20 pCO2 41.0 mmHg (35.0-45.0) 08/21/18 09:20 pO2 90.0 mmHg (80.0-100.0) 08/21/18 09:20 HCO3 25.0 mEq/L (20.0-26.0) 08/21/18 09:20 Base Excess 0.4 mEq/L (-3.0-3.0) 08/21/18 09:20 O2 Saturation 97.0 % (92.0-100.0) 08/21/18 09:20 James Test Y 08/21/18 09:20 Vent Rate N/A 08/21/18 09:20 Inspired O2 28 08/21/18 09:20 Tidal Volume N/A 08/21/18 09:20 PEEP N/A 08/21/18 09:20 Pressure (ins/psv/peep) N/A 08/21/18 09:20 Critical Value D.THOMPSON 08/21/18 09:20 Sodium 141 mEq/L (136-145) 08/22/18 09:40 Potassium 4.0 mEq/L (3.5-5.1) 08/22/18 09:40 Chloride 106 mEq/L (98-107) 08/22/18 09:40 Carbon Dioxide 25.7 mEq/L (21.0-31.0) 08/22/18 09:40 Anion Gap 13.3 (7.0-16.0) 08/22/18 09:40 BUN 27 mg/dL (7-25) H 08/22/18 09:40 Creatinine 0.6 mg/dL (0.6-1.2) 08/22/18 09:40 Est GFR ( Amer) TNP 08/22/18 09:40 Est GFR (Non-Af Amer) TNP 08/22/18 09:40 BUN/Creatinine Ratio 45.0 08/22/18 09:40 Glucose 121 mg/dL (70-105) H 08/22/18 09:40 Whole Bld Lactic Acid 1.10 mmol/L (0.60-1.99) 08/19/18 12:16 Calcium 8.6 mg/dL (8.6-10.3) 08/22/18 09:40 Phosphorus 3.5 mg/dL (2.5-5.0) 08/19/18 12:16 Magnesium 1.8 mg/dL (1.9-2.7) L 08/19/18 12:16 Total Bilirubin 0.4 mg/dL (0.3-1.0) 08/22/18 09:40 AST 14 U/L (13-39) 08/22/18 09:40 ALT 9 U/L (7-52) 08/22/18 09:40 Alkaline Phosphatase 68 U/L (34-104) 08/22/18 09:40 Troponin I 0.01 ng/mL (0.01-0.05) 08/19/18 12:16 B-Natriuretic Peptide 128.0 pg/mL (5.0-100.0) H 08/19/18 12:16 Total Protein 5.5 gm/dL (6.0-8.3) L 08/22/18 09:40 Albumin 2.7 gm/dL (3.7-5.3) L 08/22/18 09:40 Globulin 2.8 gm/dL 08/22/18 09:40 Albumin/Globulin Ratio 1.0 (1.0-1.8) 08/22/18 09:40 Carcinoembryonic Ag 5.6 ng/mL (0.0-4.7) H 08/20/18 19:27 CA 19-9 Antigen SEE REF. LAB REPORT 08/20/18 19:27 CA 27-29 Serial Monitr SEE REF. LAB REPORT 08/20/18 19:27 CA 125 Antigen SEE REF. LAB REPORT 08/20/18 19:27 Urine Source MIDSTREAM 08/19/18 15:30 Urine Color YELLOW 08/19/18 15:30 Urine Clarity HAZY (CLEAR) 08/19/18 15:30 Urine pH 7.0 (4.6 - 8.0) 08/19/18 15:30 Ur Specific [place] 1.010 (1.005-1.030) 08/19/18 15:30 Urine Protein NEGATIVE mg/dL (NEGATIVE) 08/19/18 15:30 Urine Glucose (UA) NEGATIVE mg/dL (NEGATIVE) 08/19/18 15:30 Urine Ketones 40 mg/dL (NEGATIVE) H 08/19/18 15:30 Urine Blood NEGATIVE (NEGATIVE) 08/19/18 15:30 Urine Nitrate POSITIVE (NEGATIVE) H 08/19/18 15:30 Urine Bilirubin NEGATIVE (NEGATIVE) 08/19/18 15:30 Urine Urobilinogen 0.2 E.U./dL (0.2 - 1.0) 08/19/18 15:30 Ur Leukocyte Esterase TRACE (NEGATIVE) H 08/19/18 15:30 Urine RBC 0-2 /hpf (0-5) 08/19/18 15:30 Urine WBC 6-10 /hpf (0-5) H 08/19/18 15:30 Ur Epithelial Cells FEW /lpf (FEW) 08/19/18 15:30 Urine Bacteria MANY /hpf (NONE SEEN) H 08/19/18 15:30 - Physical Exam Vitals and I&O: Vital Signs Temp 98.3 F 08/22/18 12:00 Pulse 88 08/22/18 14:51 Resp 24 08/22/18 14:51 BP 196/70 08/22/18 12:05 Pulse Ox 100 08/22/18 14:51 Intake & Output 08/21/18 08/22/18 08/22/18 18:59 06:59 18:59 Intake Total 600 400 100 Output Total 60 575 Balance 540 -175 100 Weight (lbs) 51.256 kg 51.301 kg Intake: Intake, IV Amount 100 200 100 Piperacillin Sodium/ 100 200 100 Tazobact 4.5 gm In Sodium Chloride 0.9% 100 ml @ 100 mls/hr IV Q8HR [facility] Rx #:[id number] Oral 500 200 Output: Chest Tube Drainage 60 25 Left Lateral Chest 60 25 Urine 550 Other: # Voids 1 3 # Bowel Movements 0 0 Weight Source Bedscale Bedscale Active Medications: Current Medications Acetaminophen/Hydrocodone Bitart ([place] 5mg/325mg) 1 tab PO Q4H PRN PRN Reason: Pain (Moderate) Stop: 10/18/18 16:13 Last Admin: 08/22/18 15:54 Dose: 1 tab Albuterol Sulfate (Albuterol 2.5mg/3ml Neb Ud) 2.5 mg HHN Q2H PRN PRN Reason: Respiratory Distress Stop: 10/19/18 17:38 Last Admin: 08/20/18 19:17 Dose: 2.5 mg Albuterol/Ipratropium (Duoneb Neb) 3 ml HHN [id number] [facility] Stop: 10/19/18 18:59 Last Admin: 08/22/18 14:51 Dose: 3 ml Budesonide (Pulmicort) 0.5 mg HHN BIDRT [facility] Stop: 10/19/18 18:59 Last Admin: 08/22/18 07:22 Dose: 0.5 mg Hydralazine HCl (Apresoline 20 Mg/Ml) 10 mg IV Q6HR PRN PRN Reason: SBP ABOVE 170 Stop: 10/19/18 17:33 Last Admin: 08/21/18 06:08 Dose: 10 mg Piperacillin Sod/Tazobactam (Sod 4.5 gm/ Sodium Chloride) 100 mls @ 100 mls/hr IV Q8HR [facility] Stop: 10/19/18 13:59 Last Infusion: 08/22/18 15:53 Dose: Infused Metoprolol Tartrate (Lopressor) 25 mg PO BID [facility] Stop: 10/19/18 17:44 Last Admin: 08/22/18 12:05 Dose: 25 mg Morphine Sulfate (Morphine) 2 mg IVP Q4HR PRN PRN Reason: Pain (Severe) Stop: 10/18/18 20:41 Last Admin: 08/22/18 12:12 Dose: 2 mg Pantoprazole Sodium (Protonix) 40 mg PO QDAC [facility] Stop: 10/20/18 07:29 Last Admin: 08/22/18 06:42 Dose: 40 mg General: Alert Cardiovascular: Regular rate Lungs: Other (rales) Assessment/Plan - Assessment Assessment: Pneumonia Pleural effusion HTN Left Lung mass - Plan Plan: so far all tumor markers are negative f/u on the CT guided biopsy result Continue antibiotics Monitor BP TELEMONITORING
[2018-08-23] MEDS: Morphine Sulfate 2 mg/mL 1mL Syr IVP PRN ×3 (01:23→21:52)
[2018-08-23 04:20] LABS: HEMOGLOBIN 12.5 gm/dL (12-16); LYMPHOCYTE ABSOLUTE 1.6 Th/cmm (1.5-3.0); MEAN CORPUSCULAR HEMOGLOBIN 27.7 pg (27.0-31.0); MEAN CORPUSCULAR HGB CONC 31.8 pg (28.0-36.0); MONOCYTE ABSOLUTE 0.8 Th/cmm (0.3-1.0)
[2018-08-23 04:35] LABS: % BASOPHILS 0.2 % (0.0-2.0); % EOSINOPHILS 3.6 % (0.0-5.0); % LYMPHOCYTES 15.3 % (20.0-50.0); % MONOCYTES 7.4 % (2.0-10.0); % NEUTROPHILS 73.5 % (40.0-80.0); EOSINOPHILE ABSOLUTE 0.4 Th/cmm (0.1-0.4); HEMATOCRIT 39.3 % (41.0-60); MEAN CELL VOLUME 87.4 fl (81-100); MEAN PLATELET VOLUME 8.7 fl; NEUTROPHILE ABSOLUTE 7.5 Th/cmm (1.8-8.0); PLATELET COUNT 435 Th/cmm (150-400); RED BLOOD COUNT 4.49 Mil/cmm (3.80-5.20); WHITE BLOOD COUNT 10.3 Th/cmm (4.8-10.8)
[2018-08-23] MEDS: Pantoprazole 40 mg EC Tab PO SCH (06:41)
[2018-08-23] MEDS: Albuterol/Ipratropium Neb 3 ML AERS HHN SCH ×4 (06:54→18:53)
[2018-08-23] MEDS: Budesonide 0.5 Mg/2 mL Ud HHN SCH ×2 (06:54→18:53)
--- NOTE | 2018-08-23 08:13 | Diagnostic Imaging Report ---
Portable chest x-ray HISTORY: Mass, pneumothorax Compared with prior exam of 08/22/2018, little change with diffuse infiltrate and density within the left lung and left hemithorax. A CT documented pneumothorax cannot be clearly visualized on this plain radiograph. Evidence of a small right pleural effusion. No change in right chest tube position. No change in subcutaneous air adjacent to the left neck and left chest region. IMPRESSION: 1. No significant change in the pulmonary status since August 22, 2018.
--- NOTE | 2018-08-23 14:33 | Pathology Report ---
[id number] Collection Date: 08/22/2018 Surgeon: Dr. You Garcia Specimen Description: Left lung needle biopsy. Gross Description: Received in formalin are two thin needle acquired cores of stevens soft tissue measuring 1.4 and 1.5 cm in length. Each core of tissue has a diameter of approximately 1 mm, and are totally submitted in two cassettes labeled A1 and A2. Microscopic Description: The histologic sections show an infiltrating tumor forming distinct glandular structures consistent with adenocarcinoma. The tumor cells show acinar/columnar morphology with areas of micropapillary proliferation. There is moderate nuclear enlargement and pleomorphism, and many cells also show prominent nuclei. There is abundant eosinophilic cytoplasm and vacuolization with collections mucin seen. The tumor cells also form infiltrating cohesive clusters surrounded by desmoplastic stroma, consistent with invasive adenocarcinoma. Diagnosis: Infiltrating adenocarcinoma (Non-small cell carcinoma). Comment: This patient also has a pleural fluid cytology specimen that is positive for adenocarcinoma, consistent with malignant pleural effusion (see cytology report number [id number]). The presence of a malignant pleural effusion makes this a Stage IV Non-small cell carcinoma of the lung. Dr. Octaviano Choudhary is notified of these findings on 08/23/2018. JOB# [id number] [facility] [place]
[2018-08-23] MEDS: Hydrocodone/APAP 5mg/325mg Tab PO PRN (16:08)
--- NOTE | 2018-08-23 18:04 | General Progress Note ---
Subjective - Review of Systems Service Date: 08/23/18 Subjective: Patient doing ok biopsy positive for ADENOCARCINOMA Objective - Results Result Diagrams: 08/23/18 04:09 08/22/18 09:40 Recent Labs: Laboratory Last Values WBC 10.3 Th/cmm (4.8-10.8) 08/23/18 04:09 RBC 4.49 Mil/cmm (3.80-5.20) 08/23/18 04:09 Hgb 12.5 gm/dL (12-16) 08/23/18 04:09 Hct 39.3 % (41.0-60) L 08/23/18 04:09 MCV 87.4 fl (81-100) 08/23/18 04:09 MCH 27.7 pg (27.0-31.0) 08/23/18 04:09 MCHC Differential 31.8 pg (28.0-36.0) 08/23/18 04:09 RDW 13.0 % (11.5-20.0) 08/23/18 04:09 Plt Count 435 Th/cmm (150-400) H 08/23/18 04:09 MPV 8.7 fl 08/23/18 04:09 Neutrophils % 73.5 % (40.0-80.0) 08/23/18 04:09 Lymphocytes % 15.3 % (20.0-50.0) L 08/23/18 04:09 Monocytes % 7.4 % (2.0-10.0) 08/23/18 04:09 Eosinophils % 3.6 % (0.0-5.0) 08/23/18 04:09 Basophils % 0.2 % (0.0-2.0) 08/23/18 04:09 Smear Path Review 08/23/18 04:09 PT 10.0 SECONDS (9.5-11.5) 08/22/18 09:40 INR 0.96 (0.5-1.4) 08/22/18 09:40 PTT (Actin FS) 27.0 SECONDS (26.0-38.0) 08/19/18 12:16 D-Dimer 1600 ng/mL (100-400) H 08/19/18 12:16 Specimen Source ARTERIAL 08/21/18 09:20 Sample Site Right Radial 08/21/18 09:20 pH 7.40 (7.35-7.45) 08/21/18 09:20 pCO2 41.0 mmHg (35.0-45.0) 08/21/18 09:20 pO2 90.0 mmHg (80.0-100.0) 08/21/18 09:20 HCO3 25.0 mEq/L (20.0-26.0) 08/21/18 09:20 Base Excess 0.4 mEq/L (-3.0-3.0) 08/21/18 09:20 O2 Saturation 97.0 % (92.0-100.0) 08/21/18 09:20 James Test Y 08/21/18 09:20 Vent Rate N/A 08/21/18 09:20 Inspired O2 28 08/21/18 09:20 Tidal Volume N/A 08/21/18 09:20 PEEP N/A 08/21/18 09:20 Pressure (ins/psv/peep) N/A 08/21/18 09:20 Critical Value D.THOMPSON 08/21/18 09:20 Sodium 141 mEq/L (136-145) 08/22/18 09:40 Potassium 4.0 mEq/L (3.5-5.1) 08/22/18 09:40 Chloride 106 mEq/L (98-107) 08/22/18 09:40 Carbon Dioxide 25.7 mEq/L (21.0-31.0) 08/22/18 09:40 Anion Gap 13.3 (7.0-16.0) 08/22/18 09:40 BUN 27 mg/dL (7-25) H 08/22/18 09:40 Creatinine 0.6 mg/dL (0.6-1.2) 08/22/18 09:40 Est GFR ( Amer) TNP 08/22/18 09:40 Est GFR (Non-Af Amer) TNP 08/22/18 09:40 BUN/Creatinine Ratio 45.0 08/22/18 09:40 Glucose 121 mg/dL (70-105) H 08/22/18 09:40 Whole Bld Lactic Acid 1.10 mmol/L (0.60-1.99) 08/19/18 12:16 Calcium 8.6 mg/dL (8.6-10.3) 08/22/18 09:40 Phosphorus 3.5 mg/dL (2.5-5.0) 08/19/18 12:16 Magnesium 1.8 mg/dL (1.9-2.7) L 08/19/18 12:16 Total Bilirubin 0.4 mg/dL (0.3-1.0) 08/22/18 09:40 AST 14 U/L (13-39) 08/22/18 09:40 ALT 9 U/L (7-52) 08/22/18 09:40 Alkaline Phosphatase 68 U/L (34-104) 08/22/18 09:40 Troponin I 0.01 ng/mL (0.01-0.05) 08/19/18 12:16 B-Natriuretic Peptide 128.0 pg/mL (5.0-100.0) H 08/19/18 12:16 Total Protein 5.5 gm/dL (6.0-8.3) L 08/22/18 09:40 Albumin 2.7 gm/dL (3.7-5.3) L 08/22/18 09:40 Globulin 2.8 gm/dL 08/22/18 09:40 Albumin/Globulin Ratio 1.0 (1.0-1.8) 08/22/18 09:40 Carcinoembryonic Ag 5.6 ng/mL (0.0-4.7) H 08/20/18 19:27 CA 19-9 Antigen SEE REF. LAB REPORT 08/20/18 19:27 CA 27-29 Serial Monitr SEE REF. LAB REPORT 08/20/18 19:27 CA 125 Antigen SEE REF. LAB REPORT 08/20/18 19:27 Urine Source MIDSTREAM 08/19/18 15:30 Urine Color YELLOW 08/19/18 15:30 Urine Clarity HAZY (CLEAR) 08/19/18 15:30 Urine pH 7.0 (4.6 - 8.0) 08/19/18 15:30 Ur Specific [place] 1.010 (1.005-1.030) 08/19/18 15:30 Urine Protein NEGATIVE mg/dL (NEGATIVE) 08/19/18 15:30 Urine Glucose (UA) NEGATIVE mg/dL (NEGATIVE) 08/19/18 15:30 Urine Ketones 40 mg/dL (NEGATIVE) H 08/19/18 15:30 Urine Blood NEGATIVE (NEGATIVE) 08/19/18 15:30 Urine Nitrate POSITIVE (NEGATIVE) H 08/19/18 15:30 Urine Bilirubin NEGATIVE (NEGATIVE) 08/19/18 15:30 Urine Urobilinogen 0.2 E.U./dL (0.2 - 1.0) 08/19/18 15:30 Ur Leukocyte Esterase TRACE (NEGATIVE) H 08/19/18 15:30 Urine RBC 0-2 /hpf (0-5) 08/19/18 15:30 Urine WBC 6-10 /hpf (0-5) H 08/19/18 15:30 Ur Epithelial Cells FEW /lpf (FEW) 08/19/18 15:30 Urine Bacteria MANY /hpf (NONE SEEN) H 08/19/18 15:30 - Physical Exam Vitals and I&O: Vital Signs Temp 98.4 F 08/23/18 16:00 Pulse 98 08/23/18 16:58 Resp 18 08/23/18 16:00 BP 166/64 08/23/18 16:58 Pulse Ox 92 08/23/18 16:00 Intake & Output 08/22/18 08/23/18 08/23/18 18:59 06:59 18:59 Intake Total 100 290 100 Output Total 80 Balance 100 210 100 Weight (lbs) 51.301 kg Intake: Intake, IV Amount 100 200 100 Piperacillin Sodium/ 100 200 100 Tazobact 4.5 gm In Sodium Chloride 0.9% 100 ml @ 100 mls/hr IV Q8HR [facility] Rx #:[id number] Oral 90 Output: Chest Tube Drainage 80 Left Lateral Chest 80 Other: # Voids 2 # Bowel Movements 0 Weight Source Bedscale Active Medications: Current Medications Acetaminophen/Hydrocodone Bitart ([place] 5mg/325mg) 1 tab PO Q4H PRN PRN Reason: Pain (Moderate) Stop: 10/18/18 16:13 Last Admin: 08/23/18 16:08 Dose: 1 tab Albuterol Sulfate (Albuterol 2.5mg/3ml Neb Ud) 2.5 mg HHN Q2H PRN PRN Reason: Respiratory Distress Stop: 10/19/18 17:38 Last Admin: 08/20/18 19:17 Dose: 2.5 mg Albuterol/Ipratropium (Duoneb Neb) 3 ml HHN [id number] [facility] Stop: 10/19/18 18:59 Last Admin: 08/23/18 14:14 Dose: 3 ml Budesonide (Pulmicort) 0.5 mg HHN BIDRT [facility] Stop: 10/19/18 18:59 Last Admin: 08/23/18 06:54 Dose: 0.5 mg Hydralazine HCl (Apresoline 20 Mg/Ml) 10 mg IV Q6HR PRN PRN Reason: SBP ABOVE 170 Stop: 10/19/18 17:33 Last Admin: 08/23/18 04:38 Dose: 10 mg Piperacillin Sod/Tazobactam (Sod 4.5 gm/ Sodium Chloride) 100 mls @ 100 mls/hr IV Q8HR [facility] Stop: 10/19/18 13:59 Last Infusion: 08/23/18 13:25 Dose: Infused Metoprolol Tartrate (Lopressor) 25 mg PO BID [facility] Stop: 10/19/18 17:44 Last Admin: 08/23/18 16:58 Dose: 25 mg Morphine Sulfate (Morphine) 2 mg IVP Q4HR PRN PRN Reason: Pain (Severe) Stop: 10/18/18 20:41 Last Admin: 08/23/18 06:41 Dose: 2 mg Pantoprazole Sodium (Protonix) 40 mg PO QDAC [facility] Stop: 10/20/18 07:29 Last Admin: 08/23/18 06:41 Dose: 40 mg General: Alert Cardiovascular: Regular rate Lungs: Other (rales) Assessment/Plan - Assessment Assessment: Adenocarcinoma of Left lung HTN Weakness - Plan Plan: Oncology consulted Family was updated on diagnosis. They requested me not to talk to the patient about it today they will communicate with her later today Continue current treatment Nutritional Asmnt/Malnutr-PDOC - Dietary Evaluation Malnutrition Findings (Please click <Entered> for more info): Nutritional Asmnt/Malnutrition Start: 08/23/18 16: 26 Text: Status: Complete Freq: Protocol: Document 08/23/18 16:26 [email or web address] (Rec: 08/23/18 16:39 [email or web address]) Nutritional Asmnt/Malnutrition Patient General Information Nutritional Screening Moderate Risk Diagnosis PNA, LT plueral effusion Pertinent Medical Hx/Surgical Hx HTN Subjective Information Pt seen sitting up in bed at time of visit, having lunch, [place] speaking. Family at bedside helped translation. Family stated pt has been eating better, appetite improved. Pt denied chewing or swallowing difficulty on current food texture. Food preference provided to RD. Per EMR, PO intake 50%. Current Diet Order/ Nutrition Support low sodium Pertinent Medications protonix, piperacillin Pertinent Labs 2/6 BUN 27, Glucose 121 Nutritional Hx/Data Height 1.6 m Height (Calculated Centimeters) 160.0 Current Weight (lbs) 51.256 kg Weight (Calculated Kilograms) 51.3 Weight (Calculated Grams) 63752.9 [place] Body Weight 115 Body Mass Index (BMI) 20.0 Weight Status Approriate GI Symptoms GI Symptoms None Last BM none Difficult in: None Skin Integrity/Comment: intact Current %PO Fair (50-74%) Estimated Nutritional Goals BEE in Kcals: Using Current wt Calories/Kcals/Kg 25-30 Kcals Calculated 3449-2444 Protein: Using Current wt Protein g/k Protein Calculated 51 Fluid: ml 1275-1530ml (1ml/kcal) Nutritional Problem 1. Problem Problem inadequate food intake Etiology decreased appetite Signs/Symptoms: PO intake 50% - improving Malnutrition Alert Is there a minimum of two criteria No selected? Query Text:Check all the applicable criteria. A minimum of two criteria are recommended for diagnosis of either severe or non-severe malnutrition. Malnutrition Related to Morbid Obesity Malnutrition related to morbid obesity No Intervention/Recommendation Comments 1. Continue with low sodium diet as ordered. Encouraged food intake. 2. Monitor PO intake, wt, labs and skin integrity 3. F/U as high risk in 2-3 days Expected Outcomes/Goals Expected Outcomes/Goals 1. PO intake to meet at least 75% of nutritional needs. 2. Wt stability, skin to remain intact, labs to approach WNL.
[2018-08-24] MEDS: Hydrocodone/APAP 5mg/325mg Tab PO PRN (00:15)
[2018-08-24] MEDS: Pantoprazole 40 mg EC Tab PO SCH (06:42)
[2018-08-24] MEDS: Albuterol/Ipratropium Neb 3 ML AERS HHN SCH ×4 (07:17→19:32)
[2018-08-24] MEDS: Budesonide 0.5 Mg/2 mL Ud HHN SCH ×2 (07:25→19:32)
--- NOTE | 2018-08-24 08:14 | Diagnostic Imaging Report ---
Exam: Portable chest x-ray HISTORY: Pneumonia Prior exam: 08/23/2018 Findings: Portable summation of chest at 0754 hours reviewed and compared right examination day earlier demonstrates unchanged appearance of most complete opacification left hemithorax. There is mild interstitial infiltrate in the right lung. Mediastinal structures midline the heart is not enlarged bony thorax is intact. Again noted left chest tube. IMPRESSION: Unchanged appearance of the opacification of left chest. Mild right interstitial infiltrate.
[2018-08-24] MEDS: Morphine Sulfate 2 mg/mL 1mL Syr IVP PRN ×2 (10:29→19:31)
--- NOTE | 2018-08-24 17:09 | History & Physical ---
ADMIT DATE: 08/24/2018 HEMATOLOGY/ONCOLOGY CONSULTATION REFERRED BY: Dr. Schumacher. REASON FOR CONSULTATION: Lung cancer. HISTORY OF PRESENT ILLNESS: The patient is a 78-year-old female, who presents to the hospital with shortness of breath. She was found to have pleural effusion. A CT scan of the chest done reporting left side pleural effusion. She had chest tube placement after biopsy of the lung mass. The patient had pneumothorax and continues to have left chest tube in place. The cytology on the pleural effusion was reported to be malignant consistent with adenocarcinoma and biopsy from the left lung mass reported non-small cell lung cancer. Therefore, I was asked to evaluate. Records were reviewed. A CT scan from 08/20/2018 showed left pneumothorax 20% and left chest tube in place, very large area of consolidation on the left upper lobe encasing the left hilum and bronchi. Additional left upper lobe infiltrates, 7 mm right basilar nodule is noted. CT-guided biopsy was done on 08/21/2018. A CT scan on 08/19/2018 was also reviewed. PAST MEDICAL HISTORY: Hypertension. PAST SURGICAL HISTORY: None. SOCIAL HISTORY: She was never smoker. The history is mainly gathered from the granddaughter, Elana who was at bedside. PHYSICAL EXAMINATION: GENERAL: The patient is awake, not in distress. VITAL SIGNS: Stable. Lying on her left side down. HEENT: Unremarkable. NECK: No lymphadenopathy. CHEST: Decreased air entry on left lung base. ABDOMEN: Soft. EXTREMITIES: Unremarkable. LABORATORY DATA: Pathology report from 08/22/2018 on the pleural effusion cytology reads malignant pleural effusion consistent with metastatic adenocarcinoma and the pathology from 08/22/2018, infiltrating adenocarcinoma from left lung needle biopsy. Lab work, CBC unremarkable except for platelets 435. Chemistry panel normal. Creatinine 0.6. Normal liver functions. ASSESSMENT: Lung adenocarcinoma with malignant pleural effusion consistent with stage 4 lung cancer. The patient is a never smoker. She will need to be tested for EGFR mutation. She will also need to be tested for ROS1 and alk rearrangement as well as PD-L1 expression to determine the best first line treatment. For staging, she will need MRI of the brain done and PET scan, which can be done as outpatient in this patient for further management. The patient will have pleurodesis prior to removal of the chest tube. Thank you, Dr. Schumacher, for the opportunity to participate in the care of this interesting case. JOB# [id number]
--- NOTE | 2018-08-24 21:05 | General Progress Note ---
Subjective - Review of Systems Service Date: 08/24/18 Subjective: Patient doing ok no new concern reported Objective - Results Result Diagrams: 08/23/18 04:09 08/22/18 09:40 Recent Labs: Laboratory Last Values WBC 10.3 Th/cmm (4.8-10.8) 08/23/18 04:09 RBC 4.49 Mil/cmm (3.80-5.20) 08/23/18 04:09 Hgb 12.5 gm/dL (12-16) 08/23/18 04:09 Hct 39.3 % (41.0-60) L 08/23/18 04:09 MCV 87.4 fl (81-100) 08/23/18 04:09 MCH 27.7 pg (27.0-31.0) 08/23/18 04:09 MCHC Differential 31.8 pg (28.0-36.0) 08/23/18 04:09 RDW 13.0 % (11.5-20.0) 08/23/18 04:09 Plt Count 435 Th/cmm (150-400) H 08/23/18 04:09 MPV 8.7 fl 08/23/18 04:09 Neutrophils % 73.5 % (40.0-80.0) 08/23/18 04:09 Lymphocytes % 15.3 % (20.0-50.0) L 08/23/18 04:09 Monocytes % 7.4 % (2.0-10.0) 08/23/18 04:09 Eosinophils % 3.6 % (0.0-5.0) 08/23/18 04:09 Basophils % 0.2 % (0.0-2.0) 08/23/18 04:09 Smear Path Review 08/23/18 04:09 PT 10.0 SECONDS (9.5-11.5) 08/22/18 09:40 INR 0.96 (0.5-1.4) 08/22/18 09:40 PTT (Actin FS) 27.0 SECONDS (26.0-38.0) 08/19/18 12:16 D-Dimer 1600 ng/mL (100-400) H 08/19/18 12:16 Specimen Source ARTERIAL 08/21/18 09:20 Sample Site Right Radial 08/21/18 09:20 pH 7.40 (7.35-7.45) 08/21/18 09:20 pCO2 41.0 mmHg (35.0-45.0) 08/21/18 09:20 pO2 90.0 mmHg (80.0-100.0) 08/21/18 09:20 HCO3 25.0 mEq/L (20.0-26.0) 08/21/18 09:20 Base Excess 0.4 mEq/L (-3.0-3.0) 08/21/18 09:20 O2 Saturation 97.0 % (92.0-100.0) 08/21/18 09:20 James Test Y 08/21/18 09:20 Vent Rate N/A 08/21/18 09:20 Inspired O2 28 08/21/18 09:20 Tidal Volume N/A 08/21/18 09:20 PEEP N/A 08/21/18 09:20 Pressure (ins/psv/peep) N/A 08/21/18 09:20 Critical Value D.THOMPSON 08/21/18 09:20 Sodium 141 mEq/L (136-145) 08/22/18 09:40 Potassium 4.0 mEq/L (3.5-5.1) 08/22/18 09:40 Chloride 106 mEq/L (98-107) 08/22/18 09:40 Carbon Dioxide 25.7 mEq/L (21.0-31.0) 08/22/18 09:40 Anion Gap 13.3 (7.0-16.0) 08/22/18 09:40 BUN 27 mg/dL (7-25) H 08/22/18 09:40 Creatinine 0.6 mg/dL (0.6-1.2) 08/22/18 09:40 Est GFR ( Amer) TNP 08/22/18 09:40 Est GFR (Non-Af Amer) TNP 08/22/18 09:40 BUN/Creatinine Ratio 45.0 08/22/18 09:40 Glucose 121 mg/dL (70-105) H 08/22/18 09:40 Whole Bld Lactic Acid 1.10 mmol/L (0.60-1.99) 08/19/18 12:16 Calcium 8.6 mg/dL (8.6-10.3) 08/22/18 09:40 Phosphorus 3.5 mg/dL (2.5-5.0) 08/19/18 12:16 Magnesium 1.8 mg/dL (1.9-2.7) L 08/19/18 12:16 Total Bilirubin 0.4 mg/dL (0.3-1.0) 08/22/18 09:40 AST 14 U/L (13-39) 08/22/18 09:40 ALT 9 U/L (7-52) 08/22/18 09:40 Alkaline Phosphatase 68 U/L (34-104) 08/22/18 09:40 Troponin I 0.01 ng/mL (0.01-0.05) 08/19/18 12:16 B-Natriuretic Peptide 128.0 pg/mL (5.0-100.0) H 08/19/18 12:16 Total Protein 5.5 gm/dL (6.0-8.3) L 08/22/18 09:40 Albumin 2.7 gm/dL (3.7-5.3) L 08/22/18 09:40 Globulin 2.8 gm/dL 08/22/18 09:40 Albumin/Globulin Ratio 1.0 (1.0-1.8) 08/22/18 09:40 Carcinoembryonic Ag 5.6 ng/mL (0.0-4.7) H 08/20/18 19:27 CA 19-9 Antigen SEE REF. LAB REPORT 08/20/18 19:27 CA 27-29 Serial Monitr SEE REF. LAB REPORT 08/20/18 19:27 CA 125 Antigen SEE REF. LAB REPORT 08/20/18 19:27 Urine Source MIDSTREAM 08/19/18 15:30 Urine Color YELLOW 08/19/18 15:30 Urine Clarity HAZY (CLEAR) 08/19/18 15:30 Urine pH 7.0 (4.6 - 8.0) 08/19/18 15:30 Ur Specific [place] 1.010 (1.005-1.030) 08/19/18 15:30 Urine Protein NEGATIVE mg/dL (NEGATIVE) 08/19/18 15:30 Urine Glucose (UA) NEGATIVE mg/dL (NEGATIVE) 08/19/18 15:30 Urine Ketones 40 mg/dL (NEGATIVE) H 08/19/18 15:30 Urine Blood NEGATIVE (NEGATIVE) 08/19/18 15:30 Urine Nitrate POSITIVE (NEGATIVE) H 08/19/18 15:30 Urine Bilirubin NEGATIVE (NEGATIVE) 08/19/18 15:30 Urine Urobilinogen 0.2 E.U./dL (0.2 - 1.0) 08/19/18 15:30 Ur Leukocyte Esterase TRACE (NEGATIVE) H 08/19/18 15:30 Urine RBC 0-2 /hpf (0-5) 08/19/18 15:30 Urine WBC 6-10 /hpf (0-5) H 08/19/18 15:30 Ur Epithelial Cells FEW /lpf (FEW) 08/19/18 15:30 Urine Bacteria MANY /hpf (NONE SEEN) H 08/19/18 15:30 - Physical Exam Vitals and I&O: Vital Signs Temp 99.1 F 08/24/18 20:00 Pulse 76 08/24/18 20:00 Resp 18 08/24/18 20:00 BP 142/66 08/24/18 20:00 Pulse Ox 96 08/24/18 20:00 Intake & Output 08/24/18 08/24/18 08/25/18 06:59 18:59 06:59 Intake Total 650 100 250 Output Total 625 445 Balance 25 100 -195 Weight (lbs) 51.71 kg 51.71 kg Intake: Intake, IV Amount 200 100 Piperacillin Sodium/ 200 100 Tazobact 4.5 gm In Sodium Chloride 0.9% 100 ml @ 100 mls/hr IV Q8HR [facility] Rx #:[id number] Oral 450 250 Output: Chest Tube Drainage 225 145 Left Lateral Chest 225 145 Urine 400 300 Other: # Voids 1 # Bowel Movements 0 Weight Source Bedscale Bedscale Active Medications: Current Medications Acetaminophen/Hydrocodone Bitart ([place] 5mg/325mg) 1 tab PO Q4H PRN PRN Reason: Pain (Moderate) Stop: 10/18/18 16:13 Last Admin: 08/24/18 00:15 Dose: 1 tab Albuterol Sulfate (Albuterol 2.5mg/3ml Neb Ud) 2.5 mg HHN Q2H PRN PRN Reason: Respiratory Distress Stop: 10/19/18 17:38 Last Admin: 08/20/18 19:17 Dose: 2.5 mg Albuterol/Ipratropium (Duoneb Neb) 3 ml HHN [id number] [facility] Stop: 10/19/18 18:59 Last Admin: 08/24/18 19:32 Dose: 3 ml Budesonide (Pulmicort) 0.5 mg HHN BIDRT [facility] Stop: 10/19/18 18:59 Last Admin: 08/24/18 19:32 Dose: 0.5 mg Hydralazine HCl (Apresoline 20 Mg/Ml) 10 mg IV Q6HR PRN PRN Reason: SBP ABOVE 170 Stop: 10/19/18 17:33 Last Admin: 08/24/18 05:38 Dose: 10 mg Piperacillin Sod/Tazobactam (Sod 4.5 gm/ Sodium Chloride) 100 mls @ 100 mls/hr IV Q8HR [facility] Stop: 10/19/18 13:59 Last Infusion: 08/24/18 14:20 Dose: Infused Doxycycline Hyclate 3,000 mg/ (Sodium Chloride) 300 mls @ 0 mls/hr IV ONCE ONE Stop: 08/25/18 12:01 Metoprolol Tartrate (Lopressor) 25 mg PO BID [facility] Stop: 10/19/18 17:44 Last Admin: 08/24/18 17:21 Dose: 25 mg Morphine Sulfate (Morphine) 2 mg IVP Q4HR PRN PRN Reason: Pain (Severe) Stop: 10/18/18 20:41 Last Admin: 08/24/18 19:31 Dose: 2 mg Pantoprazole Sodium (Protonix) 40 mg PO QDAC [facility] Stop: 10/20/18 07:29 Last Admin: 08/24/18 06:42 Dose: 40 mg General: Alert Cardiovascular: Regular rate Lungs: Other (rales) Assessment/Plan - Assessment Assessment: Adenocarcinoma of Left lung stage 4 HTN Weakness - Plan Plan: Oncology eval noted and appreciated. Out patient follow up for further treatment Pleurodesis per CT Surgery Continue current treatment Nutritional Asmnt/Malnutr-PDOC - Dietary Evaluation Malnutrition Findings (Please click <Entered> for more info): Nutritional Asmnt/Malnutrition Start: 08/23/18 16: 26 Text: Status: Complete Freq: Protocol: Document 08/23/18 16:26 JAYME (Rec: 08/23/18 16:39 JAYME [email or web address]) Nutritional Asmnt/Malnutrition Patient General Information Nutritional Screening Moderate Risk Diagnosis PNA, LT plueral effusion Pertinent Medical Hx/Surgical Hx HTN Subjective Information Pt seen sitting up in bed at time of visit, having lunch, [place]isw[place] speaking. Family at bedside helped translation. Family stated pt has been eating better, appetite improved. Pt denied chewing or swallowing difficulty on current food texture. Food preference provided to RD. Per EMR, PO intake 50%. Current Diet Order/ Nutrition Support low sodium Pertinent Medications protonix, piperacillin Pertinent Labs 2/6 BUN 27, Glucose 121 Nutritional Hx/Data Height 1.6 m Height (Calculated Centimeters) 160.0 Current Weight (lbs) 51.256 kg Weight (Calculated Kilograms) 51.3 Weight (Calculated Grams) 02836.9 [place] Body Weight 115 Body Mass Index (BMI) 20.0 Weight Status Approriate GI Symptoms GI Symptoms None Last BM none Difficult in: None Skin Integrity/Comment: intact Current %PO Fair (50-74%) Estimated Nutritional Goals BEE in Kcals: Using Current wt Calories/Kcals/Kg 25-30 Kcals Calculated 2012-3663 Protein: Using Current wt Protein g/k Protein Calculated 51 Fluid: ml 1275-1530ml (1ml/kcal) Nutritional Problem 1. Problem Problem inadequate food intake Etiology decreased appetite Signs/Symptoms: PO intake 50% - improving Malnutrition Alert Is there a minimum of two criteria No selected? Query Text:Check all the applicable criteria. A minimum of two criteria are recommended for diagnosis of either severe or non-severe malnutrition. Malnutrition Related to Morbid Obesity Malnutrition related to morbid obesity No Intervention/Recommendation Comments 1. Continue with low sodium diet as ordered. Encouraged food intake. 2. Monitor PO intake, wt, labs and skin integrity 3. F/U as high risk in 2-3 days Expected Outcomes/Goals Expected Outcomes/Goals 1. PO intake to meet at least 75% of nutritional needs. 2. Wt stability, skin to remain intact, labs to approach WNL.
[2018-08-25] MEDS: Pantoprazole 40 mg EC Tab PO SCH (06:41)
[2018-08-25 06:44] LABS: % BASOPHILS 0.6 % (0.0-2.0); % EOSINOPHILS 3.6 % (0.0-5.0); % LYMPHOCYTES 16.6 % (20.0-50.0); % MONOCYTES 9.2 % (2.0-10.0); BASOPHILE ABSOLUTE 0.1 Th/cumm (0-0.2); EOSINOPHILE ABSOLUTE 0.3 Th/cmm (0.1-0.4); HEMATOCRIT 39.5 % (41.0-60); HEMOGLOBIN 12.9 gm/dL (12-16); LYMPHOCYTE ABSOLUTE 1.5 Th/cmm (1.5-3.0); MEAN CELL VOLUME 86.1 fl (81-100); MEAN CORPUSCULAR HEMOGLOBIN 28.1 pg (27.0-31.0); MEAN CORPUSCULAR HGB CONC 32.6 pg (28.0-36.0); MEAN PLATELET VOLUME 8.3 fl; MONOCYTE ABSOLUTE 0.8 Th/cmm (0.3-1.0); NEUTROPHILE ABSOLUTE 6.2 Th/cmm (1.8-8.0); PLATELET COUNT 384 Th/cmm (150-400); RED BLOOD COUNT 4.59 Mil/cmm (3.80-5.20); RED CELL DISTRIBUTION WIDTH 12.7 % (11.5-20.0); WHITE BLOOD COUNT 8.9 Th/cmm (4.8-10.8)
[2018-08-25] MEDS: Budesonide 0.5 Mg/2 mL Ud HHN SCH ×2 (07:12→20:40)
[2018-08-25] MEDS: Albuterol/Ipratropium Neb 3 ML AERS HHN SCH ×4 (07:21→20:40)
[2018-08-25] MEDS: Morphine Sulfate 2 mg/mL 1mL Syr IVP PRN ×3 (08:24→17:06)
--- NOTE | 2018-08-25 09:36 | Diagnostic Imaging Report ---
Exam: Chest x-ray HISTORY: Follow-up. Findings: Frontal examination of chest reviewed and compared to prior examination day earlier unchanged appearance. There is almost complete opacification left hemithorax. Left chest tube unchanged position. IMPRESSION: Unchanged compared to prior examination day earlier.
--- NOTE | 2018-08-25 11:42 | General Progress Note ---
Subjective - Review of Systems Service Date: 08/25/18 Subjective: not short of breath Objective - Results Result Diagrams: 08/25/18 06:00 08/22/18 09:40 Recent Labs: Laboratory Last Values WBC 8.9 Th/cmm (4.8-10.8) 08/25/18 06:00 RBC 4.59 Mil/cmm (3.80-5.20) 08/25/18 06:00 Hgb 12.9 gm/dL (12-16) 08/25/18 06:00 Hct 39.5 % (41.0-60) L 08/25/18 06:00 MCV 86.1 fl (81-100) 08/25/18 06:00 MCH 28.1 pg (27.0-31.0) 08/25/18 06:00 MCHC Differential 32.6 pg (28.0-36.0) 08/25/18 06:00 RDW 12.7 % (11.5-20.0) 08/25/18 06:00 Plt Count 384 Th/cmm (150-400) 08/25/18 06:00 MPV 8.3 fl 08/25/18 06:00 Neutrophils % 70.0 % (40.0-80.0) 08/25/18 06:00 Lymphocytes % 16.6 % (20.0-50.0) L 08/25/18 06:00 Monocytes % 9.2 % (2.0-10.0) 08/25/18 06:00 Eosinophils % 3.6 % (0.0-5.0) 08/25/18 06:00 Basophils % 0.6 % (0.0-2.0) 08/25/18 06:00 Smear Path Review 08/23/18 04:09 PT 10.0 SECONDS (9.5-11.5) 08/22/18 09:40 INR 0.96 (0.5-1.4) 08/22/18 09:40 PTT (Actin FS) 27.0 SECONDS (26.0-38.0) 08/19/18 12:16 D-Dimer 1600 ng/mL (100-400) H 08/19/18 12:16 Specimen Source ARTERIAL 08/21/18 09:20 Sample Site Right Radial 08/21/18 09:20 pH 7.40 (7.35-7.45) 08/21/18 09:20 pCO2 41.0 mmHg (35.0-45.0) 08/21/18 09:20 pO2 90.0 mmHg (80.0-100.0) 08/21/18 09:20 HCO3 25.0 mEq/L (20.0-26.0) 08/21/18 09:20 Base Excess 0.4 mEq/L (-3.0-3.0) 08/21/18 09:20 O2 Saturation 97.0 % (92.0-100.0) 08/21/18 09:20 James Test Y 08/21/18 09:20 Vent Rate N/A 08/21/18 09:20 Inspired O2 28 08/21/18 09:20 Tidal Volume N/A 08/21/18 09:20 PEEP N/A 08/21/18 09:20 Pressure (ins/psv/peep) N/A 08/21/18 09:20 Critical Value D.THOMPSON 08/21/18 09:20 Sodium 141 mEq/L (136-145) 08/22/18 09:40 Potassium 4.0 mEq/L (3.5-5.1) 08/22/18 09:40 Chloride 106 mEq/L (98-107) 08/22/18 09:40 Carbon Dioxide 25.7 mEq/L (21.0-31.0) 08/22/18 09:40 Anion Gap 13.3 (7.0-16.0) 08/22/18 09:40 BUN 27 mg/dL (7-25) H 08/22/18 09:40 Creatinine 0.6 mg/dL (0.6-1.2) 08/22/18 09:40 Est GFR ( Amer) TNP 08/22/18 09:40 Est GFR (Non-Af Amer) TNP 08/22/18 09:40 BUN/Creatinine Ratio 45.0 08/22/18 09:40 Glucose 121 mg/dL (70-105) H 08/22/18 09:40 Whole Bld Lactic Acid 1.10 mmol/L (0.60-1.99) 08/19/18 12:16 Calcium 8.6 mg/dL (8.6-10.3) 08/22/18 09:40 Phosphorus 3.5 mg/dL (2.5-5.0) 08/19/18 12:16 Magnesium 1.8 mg/dL (1.9-2.7) L 08/19/18 12:16 Total Bilirubin 0.4 mg/dL (0.3-1.0) 08/22/18 09:40 AST 14 U/L (13-39) 08/22/18 09:40 ALT 9 U/L (7-52) 08/22/18 09:40 Alkaline Phosphatase 68 U/L (34-104) 08/22/18 09:40 Troponin I 0.01 ng/mL (0.01-0.05) 08/19/18 12:16 B-Natriuretic Peptide 128.0 pg/mL (5.0-100.0) H 08/19/18 12:16 Total Protein 5.5 gm/dL (6.0-8.3) L 08/22/18 09:40 Albumin 2.7 gm/dL (3.7-5.3) L 08/22/18 09:40 Globulin 2.8 gm/dL 08/22/18 09:40 Albumin/Globulin Ratio 1.0 (1.0-1.8) 08/22/18 09:40 Carcinoembryonic Ag 5.6 ng/mL (0.0-4.7) H 08/20/18 19:27 CA 19-9 Antigen SEE REF. LAB REPORT 08/20/18 19:27 CA 27-29 Serial Monitr SEE REF. LAB REPORT 08/20/18 19:27 CA 125 Antigen SEE REF. LAB REPORT 08/20/18 19:27 Urine Source MIDSTREAM 08/19/18 15:30 Urine Color YELLOW 08/19/18 15:30 Urine Clarity HAZY (CLEAR) 08/19/18 15:30 Urine pH 7.0 (4.6 - 8.0) 08/19/18 15:30 Ur Specific [place] 1.010 (1.005-1.030) 08/19/18 15:30 Urine Protein NEGATIVE mg/dL (NEGATIVE) 08/19/18 15:30 Urine Glucose (UA) NEGATIVE mg/dL (NEGATIVE) 08/19/18 15:30 Urine Ketones 40 mg/dL (NEGATIVE) H 08/19/18 15:30 Urine Blood NEGATIVE (NEGATIVE) 08/19/18 15:30 Urine Nitrate POSITIVE (NEGATIVE) H 08/19/18 15:30 Urine Bilirubin NEGATIVE (NEGATIVE) 08/19/18 15:30 Urine Urobilinogen 0.2 E.U./dL (0.2 - 1.0) 08/19/18 15:30 Ur Leukocyte Esterase TRACE (NEGATIVE) H 08/19/18 15:30 Urine RBC 0-2 /hpf (0-5) 08/19/18 15:30 Urine WBC 6-10 /hpf (0-5) H 08/19/18 15:30 Ur Epithelial Cells FEW /lpf (FEW) 08/19/18 15:30 Urine Bacteria MANY /hpf (NONE SEEN) H 08/19/18 15:30 - Physical Exam Vitals and I&O: Vital Signs Temp 97.9 F 08/25/18 08:06 Pulse 85 08/25/18 10:51 Resp 20 08/25/18 10:51 BP 197/64 08/25/18 08:19 Pulse Ox 95 08/25/18 10:51 Intake & Output 08/24/18 08/25/18 08/25/18 18:59 06:59 18:59 Intake Total 100 350 Output Total 445 Balance 100 -95 Weight (lbs) 51.71 kg Intake: Intake, IV Amount 100 100 Piperacillin Sodium/ 100 100 Tazobact 4.5 gm In Sodium Chloride 0.9% 100 ml @ 100 mls/hr IV Q8HR [facility] Rx #:[id number] Oral 250 Output: Chest Tube Drainage 145 Left Lateral Chest 145 Urine 300 Other: Weight Source Bedscale Active Medications: Current Medications Acetaminophen/Hydrocodone Bitart ([place] 5mg/325mg) 1 tab PO Q4H PRN PRN Reason: Pain (Moderate) Stop: 10/18/18 16:13 Last Admin: 08/24/18 00:15 Dose: 1 tab Albuterol Sulfate (Albuterol 2.5mg/3ml Neb Ud) 2.5 mg HHN Q2H PRN PRN Reason: Respiratory Distress Stop: 10/19/18 17:38 Last Admin: 08/20/18 19:17 Dose: 2.5 mg Albuterol/Ipratropium (Duoneb Neb) 3 ml HHN [id number] [facility] Stop: 10/19/18 18:59 Last Admin: 08/25/18 10:51 Dose: 3 ml Budesonide (Pulmicort) 0.5 mg HHN BIDRT [facility] Stop: 10/19/18 18:59 Last Admin: 08/25/18 07:12 Dose: 0.5 mg Hydralazine HCl (Apresoline 20 Mg/Ml) 10 mg IV Q6HR PRN PRN Reason: SBP ABOVE 170 Stop: 10/19/18 17:33 Last Admin: 08/25/18 08:19 Dose: 10 mg Piperacillin Sod/Tazobactam (Sod 4.5 gm/ Sodium Chloride) 100 mls @ 100 mls/hr IV Q8HR [facility] Stop: 10/19/18 13:59 Last Admin: 08/25/18 04:03 Dose: 100 mls/hr Doxycycline Hyclate 3,000 mg/ (Sodium Chloride) 300 mls @ 0 mls/hr IV ONCE ONE Stop: 08/25/18 12:01 Metoprolol Tartrate (Lopressor) 25 mg PO BID [facility] Stop: 10/19/18 17:44 Last Admin: 08/25/18 08:20 Dose: Not Given Morphine Sulfate (Morphine) 2 mg IVP Q4HR PRN PRN Reason: Pain (Severe) Stop: 10/18/18 20:41 Last Admin: 08/25/18 08:24 Dose: 2 mg Pantoprazole Sodium (Protonix) 40 mg PO QDAC [facility] Stop: 10/20/18 07:29 Last Admin: 08/25/18 06:41 Dose: 40 mg General: Alert Cardiovascular: Regular rate Lungs: Other (rales, left chest tube) Assessment/Plan - Assessment Assessment: * Stage IV NSCLC, ADENOCA * MALIGNANT PLEURAL EFFUSION for pleurodesis For molecular testing of tumor and further testing with MRI BRAIN AND PET/CT as outpatient Nutritional Asmnt/Malnutr-PDOC - Dietary Evaluation Malnutrition Findings (Please click <Entered> for more info): Nutritional Asmnt/Malnutrition Start: 08/23/18 16: 26 Text: Status: Complete Freq: Protocol: Document 08/23/18 16:26 [email or web address] (Rec: 08/23/18 16:39 [email or web address] [email or web address]) Nutritional Asmnt/Malnutrition Patient General Information Nutritional Screening Moderate Risk Diagnosis PNA, LT plueral effusion Pertinent Medical Hx/Surgical Hx HTN Subjective Information Pt seen sitting up in bed at time of visit, having lunch, [place]ian speaking. Family at bedside helped translation. Family stated pt has been eating better, appetite improved. Pt denied chewing or swallowing difficulty on current food texture. Food preference provided to RD. Per EMR, PO intake 50%. Current Diet Order/ Nutrition Support low sodium Pertinent Medications protonix, piperacillin Pertinent Labs 2/6 BUN 27, Glucose 121 Nutritional Hx/Data Height 1.6 m Height (Calculated Centimeters) 160.0 Current Weight (lbs) 51.256 kg Weight (Calculated Kilograms) 51.3 Weight (Calculated Grams) 64043.9 [place] Body Weight 115 Body Mass Index (BMI) 20.0 Weight Status Approriate GI Symptoms GI Symptoms None Last BM none Difficult in: None Skin Integrity/Comment: intact Current %PO Fair (50-74%) Estimated Nutritional Goals BEE in Kcals: Using Current wt Calories/Kcals/Kg 25-30 Kcals Calculated 8857-6045 Protein: Using Current wt Protein g/k Protein Calculated 51 Fluid: ml 1275-1530ml (1ml/kcal) Nutritional Problem 1. Problem Problem inadequate food intake Etiology decreased appetite Signs/Symptoms: PO intake 50% - improving Malnutrition Alert Is there a minimum of two criteria No selected? Query Text:Check all the applicable criteria. A minimum of two criteria are recommended for diagnosis of either severe or non-severe malnutrition. Malnutrition Related to Morbid Obesity Malnutrition related to morbid obesity No Intervention/Recommendation Comments 1. Continue with low sodium diet as ordered. Encouraged food intake. 2. Monitor PO intake, wt, labs and skin integrity 3. F/U as high risk in 2-3 days Expected Outcomes/Goals Expected Outcomes/Goals 1. PO intake to meet at least 75% of nutritional needs. 2. Wt stability, skin to remain intact, labs to approach WNL.
[2018-08-25] MEDS ORDERED: DOXYCYCLINE HYCLATE IV ONE (12:00)
[2018-08-25] MEDS ORDERED: SODIUM CHLORIDE 0.9% IV ONE (12:00)
--- NOTE | 2018-08-25 12:36 | General Progress Note ---
Subjective - Review of Systems Service Date: 08/25/18 Objective - Results Result Diagrams: 08/25/18 06:00 08/22/18 09:40 Recent Labs: Laboratory Last Values WBC 8.9 Th/cmm (4.8-10.8) 08/25/18 06:00 RBC 4.59 Mil/cmm (3.80-5.20) 08/25/18 06:00 Hgb 12.9 gm/dL (12-16) 08/25/18 06:00 Hct 39.5 % (41.0-60) L 08/25/18 06:00 MCV 86.1 fl (81-100) 08/25/18 06:00 MCH 28.1 pg (27.0-31.0) 08/25/18 06:00 MCHC Differential 32.6 pg (28.0-36.0) 08/25/18 06:00 RDW 12.7 % (11.5-20.0) 08/25/18 06:00 Plt Count 384 Th/cmm (150-400) 08/25/18 06:00 MPV 8.3 fl 08/25/18 06:00 Neutrophils % 70.0 % (40.0-80.0) 08/25/18 06:00 Lymphocytes % 16.6 % (20.0-50.0) L 08/25/18 06:00 Monocytes % 9.2 % (2.0-10.0) 08/25/18 06:00 Eosinophils % 3.6 % (0.0-5.0) 08/25/18 06:00 Basophils % 0.6 % (0.0-2.0) 08/25/18 06:00 Smear Path Review 08/23/18 04:09 PT 10.0 SECONDS (9.5-11.5) 08/22/18 09:40 INR 0.96 (0.5-1.4) 08/22/18 09:40 PTT (Actin FS) 27.0 SECONDS (26.0-38.0) 08/19/18 12:16 D-Dimer 1600 ng/mL (100-400) H 08/19/18 12:16 Specimen Source ARTERIAL 08/21/18 09:20 Sample Site Right Radial 08/21/18 09:20 pH 7.40 (7.35-7.45) 08/21/18 09:20 pCO2 41.0 mmHg (35.0-45.0) 08/21/18 09:20 pO2 90.0 mmHg (80.0-100.0) 08/21/18 09:20 HCO3 25.0 mEq/L (20.0-26.0) 08/21/18 09:20 Base Excess 0.4 mEq/L (-3.0-3.0) 08/21/18 09:20 O2 Saturation 97.0 % (92.0-100.0) 08/21/18 09:20 James Test Y 08/21/18 09:20 Vent Rate N/A 08/21/18 09:20 Inspired O2 28 08/21/18 09:20 Tidal Volume N/A 08/21/18 09:20 PEEP N/A 08/21/18 09:20 Pressure (ins/psv/peep) N/A 08/21/18 09:20 Critical Value D.THOMPSON 08/21/18 09:20 Sodium 141 mEq/L (136-145) 08/22/18 09:40 Potassium 4.0 mEq/L (3.5-5.1) 08/22/18 09:40 Chloride 106 mEq/L (98-107) 08/22/18 09:40 Carbon Dioxide 25.7 mEq/L (21.0-31.0) 08/22/18 09:40 Anion Gap 13.3 (7.0-16.0) 08/22/18 09:40 BUN 27 mg/dL (7-25) H 08/22/18 09:40 Creatinine 0.6 mg/dL (0.6-1.2) 08/22/18 09:40 Est GFR ( Amer) TNP 08/22/18 09:40 Est GFR (Non-Af Amer) TNP 08/22/18 09:40 BUN/Creatinine Ratio 45.0 08/22/18 09:40 Glucose 121 mg/dL (70-105) H 08/22/18 09:40 Whole Bld Lactic Acid 1.10 mmol/L (0.60-1.99) 08/19/18 12:16 Calcium 8.6 mg/dL (8.6-10.3) 08/22/18 09:40 Phosphorus 3.5 mg/dL (2.5-5.0) 08/19/18 12:16 Magnesium 1.8 mg/dL (1.9-2.7) L 08/19/18 12:16 Total Bilirubin 0.4 mg/dL (0.3-1.0) 08/22/18 09:40 AST 14 U/L (13-39) 08/22/18 09:40 ALT 9 U/L (7-52) 08/22/18 09:40 Alkaline Phosphatase 68 U/L (34-104) 08/22/18 09:40 Troponin I 0.01 ng/mL (0.01-0.05) 08/19/18 12:16 B-Natriuretic Peptide 128.0 pg/mL (5.0-100.0) H 08/19/18 12:16 Total Protein 5.5 gm/dL (6.0-8.3) L 08/22/18 09:40 Albumin 2.7 gm/dL (3.7-5.3) L 08/22/18 09:40 Globulin 2.8 gm/dL 08/22/18 09:40 Albumin/Globulin Ratio 1.0 (1.0-1.8) 08/22/18 09:40 Carcinoembryonic Ag 5.6 ng/mL (0.0-4.7) H 08/20/18 19:27 CA 19-9 Antigen SEE REF. LAB REPORT 08/20/18 19:27 CA 27-29 Serial Monitr SEE REF. LAB REPORT 08/20/18 19:27 CA 125 Antigen SEE REF. LAB REPORT 08/20/18 19:27 Urine Source MIDSTREAM 08/19/18 15:30 Urine Color YELLOW 08/19/18 15:30 Urine Clarity HAZY (CLEAR) 08/19/18 15:30 Urine pH 7.0 (4.6 - 8.0) 08/19/18 15:30 Ur Specific [place] 1.010 (1.005-1.030) 08/19/18 15:30 Urine Protein NEGATIVE mg/dL (NEGATIVE) 08/19/18 15:30 Urine Glucose (UA) NEGATIVE mg/dL (NEGATIVE) 08/19/18 15:30 Urine Ketones 40 mg/dL (NEGATIVE) H 08/19/18 15:30 Urine Blood NEGATIVE (NEGATIVE) 08/19/18 15:30 Urine Nitrate POSITIVE (NEGATIVE) H 08/19/18 15:30 Urine Bilirubin NEGATIVE (NEGATIVE) 08/19/18 15:30 Urine Urobilinogen 0.2 E.U./dL (0.2 - 1.0) 08/19/18 15:30 Ur Leukocyte Esterase TRACE (NEGATIVE) H 08/19/18 15:30 Urine RBC 0-2 /hpf (0-5) 08/19/18 15:30 Urine WBC 6-10 /hpf (0-5) H 08/19/18 15:30 Ur Epithelial Cells FEW /lpf (FEW) 08/19/18 15:30 Urine Bacteria MANY /hpf (NONE SEEN) H 08/19/18 15:30 - Physical Exam Vitals and I&O: Vital Signs Temp 99.0 F 08/25/18 12:24 Pulse 108 08/25/18 12:24 Resp 18 08/25/18 12:24 BP 148/59 08/25/18 12:24 Pulse Ox 98 08/25/18 12:24 Intake & Output 08/24/18 08/25/18 08/25/18 18:59 06:59 18:59 Intake Total 100 350 Output Total 445 Balance 100 -95 Weight (lbs) 51.71 kg Intake: Intake, IV Amount 100 100 Piperacillin Sodium/ 100 100 Tazobact 4.5 gm In Sodium Chloride 0.9% 100 ml @ 100 mls/hr IV Q8HR [facility] Rx #:[id number] Oral 250 Output: Chest Tube Drainage 145 Left Lateral Chest 145 Urine 300 Other: Weight Source Bedscale Active Medications: Current Medications Acetaminophen/Hydrocodone Bitart ([place] 5mg/325mg) 1 tab PO Q4H PRN PRN Reason: Pain (Moderate) Stop: 10/18/18 16:13 Last Admin: 08/24/18 00:15 Dose: 1 tab Albuterol Sulfate (Albuterol 2.5mg/3ml Neb Ud) 2.5 mg HHN Q2H PRN PRN Reason: Respiratory Distress Stop: 10/19/18 17:38 Last Admin: 08/20/18 19:17 Dose: 2.5 mg Albuterol/Ipratropium (Duoneb Neb) 3 ml HHN [id number] [facility] Stop: 10/19/18 18:59 Last Admin: 08/25/18 10:51 Dose: 3 ml Budesonide (Pulmicort) 0.5 mg HHN BIDRT [facility] Stop: 10/19/18 18:59 Last Admin: 08/25/18 07:12 Dose: 0.5 mg Hydralazine HCl (Apresoline 20 Mg/Ml) 10 mg IV Q6HR PRN PRN Reason: SBP ABOVE 170 Stop: 10/19/18 17:33 Last Admin: 08/25/18 08:19 Dose: 10 mg Piperacillin Sod/Tazobactam (Sod 4.5 gm/ Sodium Chloride) 100 mls @ 100 mls/hr IV Q8HR [facility] Stop: 10/19/18 13:59 Last Admin: 08/25/18 04:03 Dose: 100 mls/hr Doxycycline Hyclate 3,000 mg/ (Sodium Chloride) 300 mls @ 0 mls/hr IV 1230 [facility] Stop: 10/25/18 12:29 Metoprolol Tartrate (Lopressor) 25 mg PO BID [facility] Stop: 10/19/18 17:44 Last Admin: 08/25/18 08:20 Dose: Not Given Morphine Sulfate (Morphine) 2 mg IVP Q4HR PRN PRN Reason: Pain (Severe) Stop: 10/18/18 20:41 Last Admin: 08/25/18 08:24 Dose: 2 mg Pantoprazole Sodium (Protonix) 40 mg PO QDAC [facility] Stop: 10/20/18 07:29 Last Admin: 08/25/18 06:41 Dose: 40 mg General: Alert Cardiovascular: Regular rate Lungs: Other (rales, left chest tube) Assessment/Plan - Plan Plan: Pathology reviewed; stage IV lung cancer. Will perform doxycycline pleurodesis today. Cont chest tube on suction x 48 hr. Plan to remove chest tube 08/28/2018. Nutritional Asmnt/Malnutr-PDOC - Dietary Evaluation Malnutrition Findings (Please click <Entered> for more info): Nutritional Asmnt/Malnutrition Start: 08/23/18 16: 26 Text: Status: Complete Freq: Protocol: Document 08/23/18 16:26 [email or web address] (Rec: 08/23/18 16:39 [email or web address] [email or web address]) Nutritional Asmnt/Malnutrition Patient General Information Nutritional Screening Moderate Risk Diagnosis PNA, LT plueral effusion Pertinent Medical Hx/Surgical Hx HTN Subjective Information Pt seen sitting up in bed at time of visit, having lunch, Bangladeshi speaking. Family at bedside helped translation. Family stated pt has been eating better, appetite improved. Pt denied chewing or swallowing difficulty on current food texture. Food preference provided to RD. Per EMR, PO intake 50%. Current Diet Order/ Nutrition Support low sodium Pertinent Medications protonix, piperacillin Pertinent Labs 2/6 BUN 27, Glucose 121 Nutritional Hx/Data Height 1.6 m Height (Calculated Centimeters) 160.0 Current Weight (lbs) 51.256 kg Weight (Calculated Kilograms) 51.3 Weight (Calculated Grams) 68012.9 [place] Body Weight 115 Body Mass Index (BMI) 20.0 Weight Status Approriate GI Symptoms GI Symptoms None Last BM none Difficult in: None Skin Integrity/Comment: intact Current %PO Fair (50-74%) Estimated Nutritional Goals BEE in Kcals: Using Current wt Calories/Kcals/Kg 25-30 Kcals Calculated 9932-6618 Protein: Using Current wt Protein g/k Protein Calculated 51 Fluid: ml 1275-1530ml (1ml/kcal) Nutritional Problem 1. Problem Problem inadequate food intake Etiology decreased appetite Signs/Symptoms: PO intake 50% - improving Malnutrition Alert Is there a minimum of two criteria No selected? Query Text:Check all the applicable criteria. A minimum of two criteria are recommended for diagnosis of either severe or non-severe malnutrition. Malnutrition Related to Morbid Obesity Malnutrition related to morbid obesity No Intervention/Recommendation Comments 1. Continue with low sodium diet as ordered. Encouraged food intake. 2. Monitor PO intake, wt, labs and skin integrity 3. F/U as high risk in 2-3 days Expected Outcomes/Goals Expected Outcomes/Goals 1. PO intake to meet at least 75% of nutritional needs. 2. Wt stability, skin to remain intact, labs to approach WNL.
[2018-08-25] MEDS: Hydrocodone/APAP 5mg/325mg Tab PO PRN (13:54)
--- NOTE | 2018-08-25 16:37 | General Progress Note ---
Subjective - Review of Systems Service Date: 08/25/18 Subjective: Patient doing ok pleurodesis today Objective - Results Result Diagrams: 08/25/18 06:00 08/22/18 09:40 Recent Labs: Laboratory Last Values WBC 8.9 Th/cmm (4.8-10.8) 08/25/18 06:00 RBC 4.59 Mil/cmm (3.80-5.20) 08/25/18 06:00 Hgb 12.9 gm/dL (12-16) 08/25/18 06:00 Hct 39.5 % (41.0-60) L 08/25/18 06:00 MCV 86.1 fl (81-100) 08/25/18 06:00 MCH 28.1 pg (27.0-31.0) 08/25/18 06:00 MCHC Differential 32.6 pg (28.0-36.0) 08/25/18 06:00 RDW 12.7 % (11.5-20.0) 08/25/18 06:00 Plt Count 384 Th/cmm (150-400) 08/25/18 06:00 MPV 8.3 fl 08/25/18 06:00 Neutrophils % 70.0 % (40.0-80.0) 08/25/18 06:00 Lymphocytes % 16.6 % (20.0-50.0) L 08/25/18 06:00 Monocytes % 9.2 % (2.0-10.0) 08/25/18 06:00 Eosinophils % 3.6 % (0.0-5.0) 08/25/18 06:00 Basophils % 0.6 % (0.0-2.0) 08/25/18 06:00 Smear Path Review 08/23/18 04:09 PT 10.0 SECONDS (9.5-11.5) 08/22/18 09:40 INR 0.96 (0.5-1.4) 08/22/18 09:40 PTT (Actin FS) 27.0 SECONDS (26.0-38.0) 08/19/18 12:16 D-Dimer 1600 ng/mL (100-400) H 08/19/18 12:16 Specimen Source ARTERIAL 08/21/18 09:20 Sample Site Right Radial 08/21/18 09:20 pH 7.40 (7.35-7.45) 08/21/18 09:20 pCO2 41.0 mmHg (35.0-45.0) 08/21/18 09:20 pO2 90.0 mmHg (80.0-100.0) 08/21/18 09:20 HCO3 25.0 mEq/L (20.0-26.0) 08/21/18 09:20 Base Excess 0.4 mEq/L (-3.0-3.0) 08/21/18 09:20 O2 Saturation 97.0 % (92.0-100.0) 08/21/18 09:20 James Test Y 08/21/18 09:20 Vent Rate N/A 08/21/18 09:20 Inspired O2 28 08/21/18 09:20 Tidal Volume N/A 08/21/18 09:20 PEEP N/A 08/21/18 09:20 Pressure (ins/psv/peep) N/A 08/21/18 09:20 Critical Value D.THOMPSON 08/21/18 09:20 Sodium 141 mEq/L (136-145) 08/22/18 09:40 Potassium 4.0 mEq/L (3.5-5.1) 08/22/18 09:40 Chloride 106 mEq/L (98-107) 08/22/18 09:40 Carbon Dioxide 25.7 mEq/L (21.0-31.0) 08/22/18 09:40 Anion Gap 13.3 (7.0-16.0) 08/22/18 09:40 BUN 27 mg/dL (7-25) H 08/22/18 09:40 Creatinine 0.6 mg/dL (0.6-1.2) 08/22/18 09:40 Est GFR ( Amer) TNP 08/22/18 09:40 Est GFR (Non-Af Amer) TNP 08/22/18 09:40 BUN/Creatinine Ratio 45.0 08/22/18 09:40 Glucose 121 mg/dL (70-105) H 08/22/18 09:40 Whole Bld Lactic Acid 1.10 mmol/L (0.60-1.99) 08/19/18 12:16 Calcium 8.6 mg/dL (8.6-10.3) 08/22/18 09:40 Phosphorus 3.5 mg/dL (2.5-5.0) 08/19/18 12:16 Magnesium 1.8 mg/dL (1.9-2.7) L 08/19/18 12:16 Total Bilirubin 0.4 mg/dL (0.3-1.0) 08/22/18 09:40 AST 14 U/L (13-39) 08/22/18 09:40 ALT 9 U/L (7-52) 08/22/18 09:40 Alkaline Phosphatase 68 U/L (34-104) 08/22/18 09:40 Troponin I 0.01 ng/mL (0.01-0.05) 08/19/18 12:16 B-Natriuretic Peptide 128.0 pg/mL (5.0-100.0) H 08/19/18 12:16 Total Protein 5.5 gm/dL (6.0-8.3) L 08/22/18 09:40 Albumin 2.7 gm/dL (3.7-5.3) L 08/22/18 09:40 Globulin 2.8 gm/dL 08/22/18 09:40 Albumin/Globulin Ratio 1.0 (1.0-1.8) 08/22/18 09:40 Carcinoembryonic Ag 5.6 ng/mL (0.0-4.7) H 08/20/18 19:27 CA 19-9 Antigen SEE REF. LAB REPORT 08/20/18 19:27 CA 27-29 Serial Monitr SEE REF. LAB REPORT 08/20/18 19:27 CA 125 Antigen SEE REF. LAB REPORT 08/20/18 19:27 Urine Source MIDSTREAM 08/19/18 15:30 Urine Color YELLOW 08/19/18 15:30 Urine Clarity HAZY (CLEAR) 08/19/18 15:30 Urine pH 7.0 (4.6 - 8.0) 08/19/18 15:30 Ur Specific [place] 1.010 (1.005-1.030) 08/19/18 15:30 Urine Protein NEGATIVE mg/dL (NEGATIVE) 08/19/18 15:30 Urine Glucose (UA) NEGATIVE mg/dL (NEGATIVE) 08/19/18 15:30 Urine Ketones 40 mg/dL (NEGATIVE) H 08/19/18 15:30 Urine Blood NEGATIVE (NEGATIVE) 08/19/18 15:30 Urine Nitrate POSITIVE (NEGATIVE) H 08/19/18 15:30 Urine Bilirubin NEGATIVE (NEGATIVE) 08/19/18 15:30 Urine Urobilinogen 0.2 E.U./dL (0.2 - 1.0) 08/19/18 15:30 Ur Leukocyte Esterase TRACE (NEGATIVE) H 08/19/18 15:30 Urine RBC 0-2 /hpf (0-5) 08/19/18 15:30 Urine WBC 6-10 /hpf (0-5) H 08/19/18 15:30 Ur Epithelial Cells FEW /lpf (FEW) 08/19/18 15:30 Urine Bacteria MANY /hpf (NONE SEEN) H 08/19/18 15:30 - Physical Exam Vitals and I&O: Vital Signs Temp 98.0 F 08/25/18 15:53 Pulse 97 08/25/18 15:53 Resp 18 08/25/18 16:00 BP 192/80 08/25/18 15:53 Pulse Ox 98 08/25/18 15:53 Intake & Output 08/24/18 08/25/18 08/25/18 18:59 06:59 18:59 Intake Total 100 450 100 Output Total 445 Balance 100 5 100 Weight (lbs) 51.71 kg Intake: Intake, IV Amount 100 200 100 Piperacillin Sodium/ 100 200 100 Tazobact 4.5 gm In Sodium Chloride 0.9% 100 ml @ 100 mls/hr IV Q8HR [facility] Rx #:[id number] Oral 250 Output: Chest Tube Drainage 145 Left Lateral Chest 145 Urine 300 Other: Weight Source Bedscale Active Medications: Current Medications Acetaminophen/Hydrocodone Bitart ([place] 5mg/325mg) 1 tab PO Q4H PRN PRN Reason: Pain (Moderate) Stop: 10/18/18 16:13 Last Admin: 08/25/18 13:54 Dose: 1 tab Albuterol Sulfate (Albuterol 2.5mg/3ml Neb Ud) 2.5 mg HHN Q2H PRN PRN Reason: Respiratory Distress Stop: 10/19/18 17:38 Last Admin: 08/20/18 19:17 Dose: 2.5 mg Albuterol/Ipratropium (Duoneb Neb) 3 ml HHN [id number] [facility] Stop: 10/19/18 18:59 Last Admin: 08/25/18 14:00 Dose: 3 ml Budesonide (Pulmicort) 0.5 mg HHN BIDRT [facility] Stop: 10/19/18 18:59 Last Admin: 08/25/18 07:12 Dose: 0.5 mg Hydralazine HCl (Apresoline 20 Mg/Ml) 10 mg IV Q6HR PRN PRN Reason: SBP ABOVE 170 Stop: 10/19/18 17:33 Last Admin: 08/25/18 13:35 Dose: 10 mg Piperacillin Sod/Tazobactam (Sod 4.5 gm/ Sodium Chloride) 100 mls @ 100 mls/hr IV Q8HR [facility] Stop: 10/19/18 13:59 Last Infusion: 08/25/18 14:42 Dose: Infused Doxycycline Hyclate 3,000 mg/ (Sodium Chloride) 300 mls @ 0 mls/hr IV 1230 [facility] Stop: 10/25/18 12:29 Metoprolol Tartrate (Lopressor) 25 mg PO BID [facility] Stop: 10/19/18 17:44 Last Admin: 08/25/18 13:10 Dose: 25 mg Morphine Sulfate (Morphine) 2 mg IVP Q4HR PRN PRN Reason: Pain (Severe) Stop: 10/18/18 20:41 Last Admin: 08/25/18 12:48 Dose: 2 mg Pantoprazole Sodium (Protonix) 40 mg PO QDAC [facility] Stop: 10/20/18 07:29 Last Admin: 08/25/18 06:41 Dose: 40 mg General: Alert Cardiovascular: Regular rate Lungs: Other (rales, left chest tube) Assessment/Plan - Assessment Assessment: Adenocarcinoma of Left lung stage 4 HTN Weakness - Plan Plan: Oncology eval noted and appreciated. Out patient follow up for further treatment Pleurodesis per CT Surgery Continue current treatment Nutritional Asmnt/Malnutr-PDOC - Dietary Evaluation Malnutrition Findings (Please click <Entered> for more info): Nutritional Asmnt/Malnutrition Start: 08/23/18 16: 26 Text: Status: Complete Freq: Protocol: Document 08/23/18 16:26 LCALIZEG (Rec: 08/23/18 16:39 [email or web address]) Nutritional Asmnt/Malnutrition Patient General Information Nutritional Screening Moderate Risk Diagnosis PNA, LT plueral effusion Pertinent Medical Hx/Surgical Hx HTN Subjective Information Pt seen sitting up in bed at time of visit, having lunch, [place] speaking. Family at bedside helped translation. Family stated pt has been eating better, appetite improved. Pt denied chewing or swallowing difficulty on current food texture. Food preference provided to RD. Per EMR, PO intake 50%. Current Diet Order/ Nutrition Support low sodium Pertinent Medications protonix, piperacillin Pertinent Labs 2/6 BUN 27, Glucose 121 Nutritional Hx/Data Height 1.6 m Height (Calculated Centimeters) 160.0 Current Weight (lbs) 51.256 kg Weight (Calculated Kilograms) 51.3 Weight (Calculated Grams) 83159.9 [place] Body Weight 115 Body Mass Index (BMI) 20.0 Weight Status Approriate GI Symptoms GI Symptoms None Last BM none Difficult in: None Skin Integrity/Comment: intact Current %PO Fair (50-74%) Estimated Nutritional Goals BEE in Kcals: Using Current wt Calories/Kcals/Kg 25-30 Kcals Calculated 5981-2900 Protein: Using Current wt Protein g/k Protein Calculated 51 Fluid: ml 1275-1530ml (1ml/kcal) Nutritional Problem 1. Problem Problem inadequate food intake Etiology decreased appetite Signs/Symptoms: PO intake 50% - improving Malnutrition Alert Is there a minimum of two criteria No selected? Query Text:Check all the applicable criteria. A minimum of two criteria are recommended for diagnosis of either severe or non-severe malnutrition. Malnutrition Related to Morbid Obesity Malnutrition related to morbid obesity No Intervention/Recommendation Comments 1. Continue with low sodium diet as ordered. Encouraged food intake. 2. Monitor PO intake, wt, labs and skin integrity 3. F/U as high risk in 2-3 days Expected Outcomes/Goals Expected Outcomes/Goals 1. PO intake to meet at least 75% of nutritional needs. 2. Wt stability, skin to remain intact, labs to approach WNL.
--- NOTE | 2018-08-25 18:07 | History & Physical ---
ADMIT DATE: 08/25/2018 PROBLEM LIST: 1. Left-sided effusion with the lesion turned out to be adenocarcinoma. 2. Persistent leak from the left thoracostomy tube. SYMPTOMS: chest discomfort on the left side. The patient had some chemical pleurodesis by Dr. Dias this morning. PHYSICAL EXAMINATION: GENERAL: Not in acute distress. VITAL SIGNS: Temperature is 98.8, blood pressure 192/78, saturation is 98 on 2 liters. NECK: Veins not visualized. CHEST: Shows diminished air entry in the left side. Chest tube still shows some leak. LABORATORY DATA: The patient's white count is okay, hemoglobin 12.9. ASSESSMENT AND PLAN: The patient has adenocarcinoma stage 4, most likely lung origin. PLANS AND SUGGESTIONS: We will go ahead and continue . We will repeat chest x-ray and had 24-48 hours to see if there is any effect of a chemical pleurodesis, etc. and go from there. JOB# [id number]
[2018-08-26] MEDS: Hydrocodone/APAP 5mg/325mg Tab PO PRN ×3 (03:38→15:12)
[2018-08-26] MEDS: Pantoprazole 40 mg EC Tab PO SCH (06:46)
[2018-08-26] MEDS: Budesonide 0.5 Mg/2 mL Ud HHN SCH ×2 (07:44→19:30)
[2018-08-26] MEDS: Albuterol/Ipratropium Neb 3 ML AERS HHN SCH ×4 (07:44→19:30)
--- NOTE | 2018-08-26 10:02 | Diagnostic Imaging Report ---
Exam: Chest x-ray HISTORY: Status post pleurodesis Findings: Frontal examination of chest reviewed compared to prior study the early or demonstrates essentially unchanged opacification of the left hemithorax. Left chest tube unchanged position. The right lung parenchyma is well aerated. IMPRESSION: Unchanged appearance of the opacification of left hemithorax compared to prior study day earlier. Left chest tube in satisfactory stable position. Follow-up exam is recommended.
[2018-08-26] MEDS ORDERED: DOXYCYCLINE HYCLATE IV SCH (12:30)
[2018-08-26] MEDS ORDERED: SODIUM CHLORIDE 0.9% IV SCH (12:30)
--- NOTE | 2018-08-26 17:32 | Progress Notes ---
DATE: 08/26/2018 PULMONARY PROGRESS NOTE PROBLEM LIST: 1. Adenocarcinoma of the lung with effusion. 2. Loculated pneumothorax. SYMPTOMS: Nil, feeling okay, offers no specific new symptomatology and currently still being in the process of chemical pleurodesis. PHYSICAL EXAMINATION: VITAL SIGNS: Temperature is 99, blood pressure ____, saturation is mid to low 90s on 2 liters per minute. NECK: Veins not visualized. CHEST: Shows diminished air entry at the bases, otherwise unremarkable. HEART: Regular. On stopping suctioning, there is no leak, but suctioning the Pleur-Evac, there is some leak. IMPRESSION: The patient is clinically stable, appears to be slightly improving. PLANS AND SUGGESTIONS: We will check blood chemistry as well as a chest x-ray tomorrow and go from there. Care and plan discussed with Dr. Schumacher. JOB# [id number]
[2018-08-26] MEDS: Morphine Sulfate 2 mg/mL 1mL Syr IVP PRN (20:06)
[2018-08-27] MEDS: Morphine Sulfate 2 mg/mL 1mL Syr IVP PRN (01:04)
[2018-08-27 05:13] LABS: % BASOPHILS 0.3 % (0.0-2.0); % EOSINOPHILS 0.8 % (0.0-5.0); % LYMPHOCYTES 11.2 % (20.0-50.0); % NEUTROPHILS 80.7 % (40.0-80.0); EOSINOPHILE ABSOLUTE 0.1 Th/cmm (0.1-0.4); HEMATOCRIT 39.7 % (41.0-60); HEMOGLOBIN 13.2 gm/dL (12-16); LYMPHOCYTE ABSOLUTE 1.6 Th/cmm (1.5-3.0); MEAN CELL VOLUME 85.3 fl (81-100); MEAN CORPUSCULAR HEMOGLOBIN 28.3 pg (27.0-31.0); MEAN CORPUSCULAR HGB CONC 33.1 pg (28.0-36.0); MEAN PLATELET VOLUME 8.4 fl; NEUTROPHILE ABSOLUTE 11.2 Th/cmm (1.8-8.0); PLATELET COUNT 468 Th/cmm (150-400); RED BLOOD COUNT 4.66 Mil/cmm (3.80-5.20); WHITE BLOOD COUNT 13.9 Th/cmm (4.8-10.8)
[2018-08-27] MEDS: Pantoprazole 40 mg EC Tab PO SCH (06:33)
[2018-08-27] MEDS: Budesonide 0.5 Mg/2 mL Ud HHN SCH ×2 (07:23→19:26)
[2018-08-27] MEDS: Albuterol/Ipratropium Neb 3 ML AERS HHN SCH ×4 (07:23→19:26)
--- NOTE | 2018-08-27 09:05 | Diagnostic Imaging Report ---
Portable chest x-ray HISTORY: Shortness of breath Compared to prior exam of August 26, 2018, no change in abnormal density resulting in the opacification of a significant portion of the left hemithorax. Findings consistent with both pleural and parenchymal components. No change in left chest tube position. IMPRESSION: 1. No change in the pulmonary status
[2018-08-27] MEDS ORDERED: Albuterol/Ipratropium Neb 3 ML AERS HHN ONE (10:23)
--- NOTE | 2018-08-27 12:12 | General Progress Note ---
Subjective - Review of Systems Service Date: 08/26/18 Subjective: Patient doing ok no new concern noted family was at the bedside Objective - Results Result Diagrams: 08/27/18 04:50 08/22/18 09:40 Recent Labs: Laboratory Last Values WBC 13.9 Th/cmm (4.8-10.8) H 08/27/18 04:50 RBC 4.66 Mil/cmm (3.80-5.20) 08/27/18 04:50 Hgb 13.2 gm/dL (12-16) 08/27/18 04:50 Hct 39.7 % (41.0-60) L 08/27/18 04:50 MCV 85.3 fl (81-100) 08/27/18 04:50 MCH 28.3 pg (27.0-31.0) 08/27/18 04:50 MCHC Differential 33.1 pg (28.0-36.0) 08/27/18 04:50 RDW 13.0 % (11.5-20.0) 08/27/18 04:50 Plt Count 468 Th/cmm (150-400) H 08/27/18 04:50 MPV 8.4 fl 08/27/18 04:50 Neutrophils % 80.7 % (40.0-80.0) H 08/27/18 04:50 Lymphocytes % 11.2 % (20.0-50.0) L 08/27/18 04:50 Monocytes % 7.0 % (2.0-10.0) 08/27/18 04:50 Eosinophils % 0.8 % (0.0-5.0) 08/27/18 04:50 Basophils % 0.3 % (0.0-2.0) 08/27/18 04:50 Smear Path Review 08/23/18 04:09 PT 10.0 SECONDS (9.5-11.5) 08/22/18 09:40 INR 0.96 (0.5-1.4) 08/22/18 09:40 PTT (Actin FS) 27.0 SECONDS (26.0-38.0) 08/19/18 12:16 D-Dimer 1600 ng/mL (100-400) H 08/19/18 12:16 Specimen Source ARTERIAL 08/21/18 09:20 Sample Site Right Radial 08/21/18 09:20 pH 7.40 (7.35-7.45) 08/21/18 09:20 pCO2 41.0 mmHg (35.0-45.0) 08/21/18 09:20 pO2 90.0 mmHg (80.0-100.0) 08/21/18 09:20 HCO3 25.0 mEq/L (20.0-26.0) 08/21/18 09:20 Base Excess 0.4 mEq/L (-3.0-3.0) 08/21/18 09:20 O2 Saturation 97.0 % (92.0-100.0) 08/21/18 09:20 James Test Y 08/21/18 09:20 Vent Rate N/A 08/21/18 09:20 Inspired O2 28 08/21/18 09:20 Tidal Volume N/A 08/21/18 09:20 PEEP N/A 08/21/18 09:20 Pressure (ins/psv/peep) N/A 08/21/18 09:20 Critical Value D.THOMPSON 08/21/18 09:20 Sodium 141 mEq/L (136-145) 08/22/18 09:40 Potassium 4.0 mEq/L (3.5-5.1) 08/22/18 09:40 Chloride 106 mEq/L (98-107) 08/22/18 09:40 Carbon Dioxide 25.7 mEq/L (21.0-31.0) 08/22/18 09:40 Anion Gap 13.3 (7.0-16.0) 08/22/18 09:40 BUN 27 mg/dL (7-25) H 08/22/18 09:40 Creatinine 0.6 mg/dL (0.6-1.2) 08/22/18 09:40 Est GFR ( Amer) TNP 08/22/18 09:40 Est GFR (Non-Af Amer) TNP 08/22/18 09:40 BUN/Creatinine Ratio 45.0 08/22/18 09:40 Glucose 121 mg/dL (70-105) H 08/22/18 09:40 Whole Bld Lactic Acid 1.10 mmol/L (0.60-1.99) 08/19/18 12:16 Calcium 8.6 mg/dL (8.6-10.3) 08/22/18 09:40 Phosphorus 3.5 mg/dL (2.5-5.0) 08/19/18 12:16 Magnesium 1.8 mg/dL (1.9-2.7) L 08/19/18 12:16 Total Bilirubin 0.4 mg/dL (0.3-1.0) 08/22/18 09:40 AST 14 U/L (13-39) 08/22/18 09:40 ALT 9 U/L (7-52) 08/22/18 09:40 Alkaline Phosphatase 68 U/L (34-104) 08/22/18 09:40 Troponin I 0.01 ng/mL (0.01-0.05) 08/19/18 12:16 B-Natriuretic Peptide 128.0 pg/mL (5.0-100.0) H 08/19/18 12:16 Total Protein 5.5 gm/dL (6.0-8.3) L 08/22/18 09:40 Albumin 2.7 gm/dL (3.7-5.3) L 08/22/18 09:40 Globulin 2.8 gm/dL 08/22/18 09:40 Albumin/Globulin Ratio 1.0 (1.0-1.8) 08/22/18 09:40 Carcinoembryonic Ag 5.6 ng/mL (0.0-4.7) H 08/20/18 19:27 CA 19-9 Antigen SEE REF. LAB REPORT 08/20/18 19:27 CA 27-29 Serial Monitr SEE REF. LAB REPORT 08/20/18 19:27 CA 125 Antigen SEE REF. LAB REPORT 08/20/18 19:27 Urine Source MIDSTREAM 08/19/18 15:30 Urine Color YELLOW 08/19/18 15:30 Urine Clarity HAZY (CLEAR) 08/19/18 15:30 Urine pH 7.0 (4.6 - 8.0) 08/19/18 15:30 Ur Specific [place] 1.010 (1.005-1.030) 08/19/18 15:30 Urine Protein NEGATIVE mg/dL (NEGATIVE) 08/19/18 15:30 Urine Glucose (UA) NEGATIVE mg/dL (NEGATIVE) 08/19/18 15:30 Urine Ketones 40 mg/dL (NEGATIVE) H 08/19/18 15:30 Urine Blood NEGATIVE (NEGATIVE) 08/19/18 15:30 Urine Nitrate POSITIVE (NEGATIVE) H 08/19/18 15:30 Urine Bilirubin NEGATIVE (NEGATIVE) 08/19/18 15:30 Urine Urobilinogen 0.2 E.U./dL (0.2 - 1.0) 08/19/18 15:30 Ur Leukocyte Esterase TRACE (NEGATIVE) H 08/19/18 15:30 Urine RBC 0-2 /hpf (0-5) 08/19/18 15:30 Urine WBC 6-10 /hpf (0-5) H 08/19/18 15:30 Ur Epithelial Cells FEW /lpf (FEW) 08/19/18 15:30 Urine Bacteria MANY /hpf (NONE SEEN) H 08/19/18 15:30 - Physical Exam Vitals and I&O: Vital Signs Temp 98.2 F 08/27/18 08:00 Pulse 102 08/27/18 11:15 Resp 20 08/27/18 11:15 BP 154/60 08/27/18 09:15 Pulse Ox 93 08/27/18 11:15 Intake & Output 08/26/18 08/27/18 08/27/18 18:59 06:59 18:59 Intake Total 320 Output Total 282 Balance 38 Weight (lbs) 58.241 kg 58.06 kg Intake: Oral 320 Output: Chest Tube Drainage 282 Left Lateral Chest 282 Other: # Voids 3 # Bowel Movements 0 Weight Source Bedscale Bedscale Active Medications: Current Medications Albuterol Sulfate (Albuterol 2.5mg/3ml Neb Ud) 2.5 mg HHN Q2H PRN PRN Reason: Respiratory Distress Stop: 10/19/18 17:38 Last Admin: 08/20/18 19:17 Dose: 2.5 mg Albuterol/Ipratropium (Duoneb Neb) 3 ml HHN [id number] [facility] Stop: 10/19/18 18:59 Last Admin: 08/27/18 11:15 Dose: 3 ml Budesonide (Pulmicort) 0.5 mg HHN BIDRT [facility] Stop: 10/19/18 18:59 Last Admin: 08/27/18 07:23 Dose: 0.5 mg Hydralazine HCl (Apresoline 20 Mg/Ml) 10 mg IV Q6HR PRN PRN Reason: SBP ABOVE 170 Stop: 10/19/18 17:33 Last Admin: 08/26/18 08:25 Dose: 10 mg Metoprolol Tartrate (Lopressor) 25 mg PO BID [facility] Stop: 10/19/18 17:44 Last Admin: 08/27/18 09:15 Dose: 25 mg Pantoprazole Sodium (Protonix) 40 mg PO QDAC [facility] Stop: 10/20/18 07:29 Last Admin: 08/27/18 06:33 Dose: 40 mg General: Alert Cardiovascular: Regular rate Lungs: Other (rales, left chest tube) - Procedures Procedures: Procedures Procedure Code Date DRAINAGE OF L PLEURAL CAV WITH DRAIN DEV, OPEN APPROACH [id number] 08/19/18 Assessment/Plan - Assessment Assessment: Adenocarcinoma of Left lung stage 4 Pneumothorax HTN Weakness - Plan Plan: Oncology eval noted and appreciated. Out patient follow up for further treatment Pleurodesis per CT Surgery Chest removal per CT surgey Case discussed with pulmonary Continue current treatment Nutritional Asmnt/Malnutr-PDOC - Dietary Evaluation Malnutrition Findings (Please click <Entered> for more info): Nutritional Asmnt/Malnutrition Start: 08/23/18 16: 26 Text: Status: Complete Freq: Protocol: Document 08/23/18 16:26 LCHENG (Rec: 08/23/18 16:39 [email or web address]) Nutritional Asmnt/Malnutrition Patient General Information Nutritional Screening Moderate Risk Diagnosis PNA, LT plueral effusion Pertinent Medical Hx/Surgical Hx HTN Subjective Information Pt seen sitting up in bed at time of visit, having lunch, [place] speaking. Family at bedside helped translation. Family stated pt has been eating better, appetite improved. Pt denied chewing or swallowing difficulty on current food texture. Food preference provided to RD. Per EMR, PO intake 50%. Current Diet Order/ Nutrition Support low sodium Pertinent Medications protonix, piperacillin Pertinent Labs 2/6 BUN 27, Glucose 121 Nutritional Hx/Data Height 1.6 m Height (Calculated Centimeters) 160.0 Current Weight (lbs) 51.256 kg Weight (Calculated Kilograms) 51.3 Weight (Calculated Grams) 74552.9 [place] Body Weight 115 Body Mass Index (BMI) 20.0 Weight Status Approriate GI Symptoms GI Symptoms None Last BM none Difficult in: None Skin Integrity/Comment: intact Current %PO Fair (50-74%) Estimated Nutritional Goals BEE in Kcals: Using Current wt Calories/Kcals/Kg 25-30 Kcals Calculated 1583-4097 Protein: Using Current wt Protein g/k Protein Calculated 51 Fluid: ml 1275-1530ml (1ml/kcal) Nutritional Problem 1. Problem Problem inadequate food intake Etiology decreased appetite Signs/Symptoms: PO intake 50% - improving Malnutrition Alert Is there a minimum of two criteria No selected? Query Text:Check all the applicable criteria. A minimum of two criteria are recommended for diagnosis of either severe or non-severe malnutrition. Malnutrition Related to Morbid Obesity Malnutrition related to morbid obesity No Intervention/Recommendation Comments 1. Continue with low sodium diet as ordered. Encouraged food intake. 2. Monitor PO intake, wt, labs and skin integrity 3. F/U as high risk in 2-3 days Expected Outcomes/Goals Expected Outcomes/Goals 1. PO intake to meet at least 75% of nutritional needs. 2. Wt stability, skin to remain intact, labs to approach WNL.
--- NOTE | 2018-08-27 12:13 | General Progress Note ---
Subjective - Review of Systems Service Date: 08/27/18 Subjective: Patient doing ok no new concern noted family was at the bedside Objective - Results Result Diagrams: 08/27/18 04:50 08/22/18 09:40 Recent Labs: Laboratory Last Values WBC 13.9 Th/cmm (4.8-10.8) H 08/27/18 04:50 RBC 4.66 Mil/cmm (3.80-5.20) 08/27/18 04:50 Hgb 13.2 gm/dL (12-16) 08/27/18 04:50 Hct 39.7 % (41.0-60) L 08/27/18 04:50 MCV 85.3 fl (81-100) 08/27/18 04:50 MCH 28.3 pg (27.0-31.0) 08/27/18 04:50 MCHC Differential 33.1 pg (28.0-36.0) 08/27/18 04:50 RDW 13.0 % (11.5-20.0) 08/27/18 04:50 Plt Count 468 Th/cmm (150-400) H 08/27/18 04:50 MPV 8.4 fl 08/27/18 04:50 Neutrophils % 80.7 % (40.0-80.0) H 08/27/18 04:50 Lymphocytes % 11.2 % (20.0-50.0) L 08/27/18 04:50 Monocytes % 7.0 % (2.0-10.0) 08/27/18 04:50 Eosinophils % 0.8 % (0.0-5.0) 08/27/18 04:50 Basophils % 0.3 % (0.0-2.0) 08/27/18 04:50 Smear Path Review 08/23/18 04:09 PT 10.0 SECONDS (9.5-11.5) 08/22/18 09:40 INR 0.96 (0.5-1.4) 08/22/18 09:40 PTT (Actin FS) 27.0 SECONDS (26.0-38.0) 08/19/18 12:16 D-Dimer 1600 ng/mL (100-400) H 08/19/18 12:16 Specimen Source ARTERIAL 08/21/18 09:20 Sample Site Right Radial 08/21/18 09:20 pH 7.40 (7.35-7.45) 08/21/18 09:20 pCO2 41.0 mmHg (35.0-45.0) 08/21/18 09:20 pO2 90.0 mmHg (80.0-100.0) 08/21/18 09:20 HCO3 25.0 mEq/L (20.0-26.0) 08/21/18 09:20 Base Excess 0.4 mEq/L (-3.0-3.0) 08/21/18 09:20 O2 Saturation 97.0 % (92.0-100.0) 08/21/18 09:20 James Test Y 08/21/18 09:20 Vent Rate N/A 08/21/18 09:20 Inspired O2 28 08/21/18 09:20 Tidal Volume N/A 08/21/18 09:20 PEEP N/A 08/21/18 09:20 Pressure (ins/psv/peep) N/A 08/21/18 09:20 Critical Value D.THOMPSON 08/21/18 09:20 Sodium 141 mEq/L (136-145) 08/22/18 09:40 Potassium 4.0 mEq/L (3.5-5.1) 08/22/18 09:40 Chloride 106 mEq/L (98-107) 08/22/18 09:40 Carbon Dioxide 25.7 mEq/L (21.0-31.0) 08/22/18 09:40 Anion Gap 13.3 (7.0-16.0) 08/22/18 09:40 BUN 27 mg/dL (7-25) H 08/22/18 09:40 Creatinine 0.6 mg/dL (0.6-1.2) 08/22/18 09:40 Est GFR ( Amer) TNP 08/22/18 09:40 Est GFR (Non-Af Amer) TNP 08/22/18 09:40 BUN/Creatinine Ratio 45.0 08/22/18 09:40 Glucose 121 mg/dL (70-105) H 08/22/18 09:40 Whole Bld Lactic Acid 1.10 mmol/L (0.60-1.99) 08/19/18 12:16 Calcium 8.6 mg/dL (8.6-10.3) 08/22/18 09:40 Phosphorus 3.5 mg/dL (2.5-5.0) 08/19/18 12:16 Magnesium 1.8 mg/dL (1.9-2.7) L 08/19/18 12:16 Total Bilirubin 0.4 mg/dL (0.3-1.0) 08/22/18 09:40 AST 14 U/L (13-39) 08/22/18 09:40 ALT 9 U/L (7-52) 08/22/18 09:40 Alkaline Phosphatase 68 U/L (34-104) 08/22/18 09:40 Troponin I 0.01 ng/mL (0.01-0.05) 08/19/18 12:16 B-Natriuretic Peptide 128.0 pg/mL (5.0-100.0) H 08/19/18 12:16 Total Protein 5.5 gm/dL (6.0-8.3) L 08/22/18 09:40 Albumin 2.7 gm/dL (3.7-5.3) L 08/22/18 09:40 Globulin 2.8 gm/dL 08/22/18 09:40 Albumin/Globulin Ratio 1.0 (1.0-1.8) 08/22/18 09:40 Carcinoembryonic Ag 5.6 ng/mL (0.0-4.7) H 08/20/18 19:27 CA 19-9 Antigen SEE REF. LAB REPORT 08/20/18 19:27 CA 27-29 Serial Monitr SEE REF. LAB REPORT 08/20/18 19:27 CA 125 Antigen SEE REF. LAB REPORT 08/20/18 19:27 Urine Source MIDSTREAM 08/19/18 15:30 Urine Color YELLOW 08/19/18 15:30 Urine Clarity HAZY (CLEAR) 08/19/18 15:30 Urine pH 7.0 (4.6 - 8.0) 08/19/18 15:30 Ur Specific [place] 1.010 (1.005-1.030) 08/19/18 15:30 Urine Protein NEGATIVE mg/dL (NEGATIVE) 08/19/18 15:30 Urine Glucose (UA) NEGATIVE mg/dL (NEGATIVE) 08/19/18 15:30 Urine Ketones 40 mg/dL (NEGATIVE) H 08/19/18 15:30 Urine Blood NEGATIVE (NEGATIVE) 08/19/18 15:30 Urine Nitrate POSITIVE (NEGATIVE) H 08/19/18 15:30 Urine Bilirubin NEGATIVE (NEGATIVE) 08/19/18 15:30 Urine Urobilinogen 0.2 E.U./dL (0.2 - 1.0) 08/19/18 15:30 Ur Leukocyte Esterase TRACE (NEGATIVE) H 08/19/18 15:30 Urine RBC 0-2 /hpf (0-5) 08/19/18 15:30 Urine WBC 6-10 /hpf (0-5) H 08/19/18 15:30 Ur Epithelial Cells FEW /lpf (FEW) 08/19/18 15:30 Urine Bacteria MANY /hpf (NONE SEEN) H 08/19/18 15:30 - Physical Exam Vitals and I&O: Vital Signs Temp 98.2 F 08/27/18 08:00 Pulse 102 08/27/18 11:15 Resp 20 08/27/18 11:15 BP 154/60 08/27/18 09:15 Pulse Ox 93 08/27/18 11:15 Intake & Output 08/26/18 08/27/18 08/27/18 18:59 06:59 18:59 Intake Total 320 Output Total 282 Balance 38 Weight (lbs) 58.241 kg 58.06 kg Intake: Oral 320 Output: Chest Tube Drainage 282 Left Lateral Chest 282 Other: # Voids 3 # Bowel Movements 0 Weight Source Bedscale Bedscale Active Medications: Current Medications Albuterol Sulfate (Albuterol 2.5mg/3ml Neb Ud) 2.5 mg HHN Q2H PRN PRN Reason: Respiratory Distress Stop: 10/19/18 17:38 Last Admin: 08/20/18 19:17 Dose: 2.5 mg Albuterol/Ipratropium (Duoneb Neb) 3 ml HHN [id number] [facility] Stop: 10/19/18 18:59 Last Admin: 08/27/18 11:15 Dose: 3 ml Budesonide (Pulmicort) 0.5 mg HHN BIDRT [facility] Stop: 10/19/18 18:59 Last Admin: 08/27/18 07:23 Dose: 0.5 mg Hydralazine HCl (Apresoline 20 Mg/Ml) 10 mg IV Q6HR PRN PRN Reason: SBP ABOVE 170 Stop: 10/19/18 17:33 Last Admin: 08/26/18 08:25 Dose: 10 mg Metoprolol Tartrate (Lopressor) 25 mg PO BID [facility] Stop: 10/19/18 17:44 Last Admin: 08/27/18 09:15 Dose: 25 mg Pantoprazole Sodium (Protonix) 40 mg PO QDAC [facility] Stop: 10/20/18 07:29 Last Admin: 08/27/18 06:33 Dose: 40 mg General: Alert Cardiovascular: Regular rate Lungs: Other (rales, left chest tube) - Procedures Procedures: Procedures Procedure Code Date DRAINAGE OF L PLEURAL CAV WITH DRAIN DEV, OPEN APPROACH [id number] 08/19/18 Assessment/Plan - Assessment Assessment: Adenocarcinoma of Left lung stage 4 Pneumothorax HTN Weakness - Plan Plan: Monitor BP Continue current BP meds Pleurodesis per CT Surgery Chest removal per CT surgey Case discussed with pulmonary Continue current treatment Nutritional Asmnt/Malnutr-PDOC - Dietary Evaluation Malnutrition Findings (Please click <Entered> for more info): Nutritional Asmnt/Malnutrition Start: 08/23/18 16: 26 Text: Status: Complete Freq: Protocol: Document 08/23/18 16:26 LCHENG (Rec: 08/23/18 16:39 LCHENG [email or web address]) Nutritional Asmnt/Malnutrition Patient General Information Nutritional Screening Moderate Risk Diagnosis PNA, LT plueral effusion Pertinent Medical Hx/Surgical Hx HTN Subjective Information Pt seen sitting up in bed at time of visit, having lunch, [place]oc[place] speaking. Family at bedside helped translation. Family stated pt has been eating better, appetite improved. Pt denied chewing or swallowing difficulty on current food texture. Food preference provided to RD. Per EMR, PO intake 50%. Current Diet Order/ Nutrition Support low sodium Pertinent Medications protonix, piperacillin Pertinent Labs 2/6 BUN 27, Glucose 121 Nutritional Hx/Data Height 1.6 m Height (Calculated Centimeters) 160.0 Current Weight (lbs) 51.256 kg Weight (Calculated Kilograms) 51.3 Weight (Calculated Grams) 53870.9 [place] Body Weight 115 Body Mass Index (BMI) 20.0 Weight Status Approriate GI Symptoms GI Symptoms None Last BM none Difficult in: None Skin Integrity/Comment: intact Current %PO Fair (50-74%) Estimated Nutritional Goals BEE in Kcals: Using Current wt Calories/Kcals/Kg 25-30 Kcals Calculated 3536-4566 Protein: Using Current wt Protein g/k Protein Calculated 51 Fluid: ml 1275-1530ml (1ml/kcal) Nutritional Problem 1. Problem Problem inadequate food intake Etiology decreased appetite Signs/Symptoms: PO intake 50% - improving Malnutrition Alert Is there a minimum of two criteria No selected? Query Text:Check all the applicable criteria. A minimum of two criteria are recommended for diagnosis of either severe or non-severe malnutrition. Malnutrition Related to Morbid Obesity Malnutrition related to morbid obesity No Intervention/Recommendation Comments 1. Continue with low sodium diet as ordered. Encouraged food intake. 2. Monitor PO intake, wt, labs and skin integrity 3. F/U as high risk in 2-3 days Expected Outcomes/Goals Expected Outcomes/Goals 1. PO intake to meet at least 75% of nutritional needs. 2. Wt stability, skin to remain intact, labs to approach WNL.
--- NOTE | 2018-08-27 15:01 | Progress Notes ---
DATE: 08/27/2018 PULMONARY PROGRESS NOTE PROBLEM LIST: 1. Left-sided adenocarcinoma with malignant effusion. 2. Chest tube drainage. OBJECTIVE: SYMPTOMS: Nil, feeling okay. VITAL SIGNS: Temperature is 98.6, blood pressure 154/65, saturation 95 on 2 liters. NECK: Veins not visualized. CHEST: Shows diminished air entry at the left base, otherwise unremarkable. HEART: Regular. ABDOMEN: Soft, nontender. EXTREMITIES: Shows no peripheral edema. DIAGNOSTIC DATA: Chest x-ray shows some haziness in the left side, probably secondary pleural reaction. ASSESSMENT: The patient is clinically stable, slight leak. PLANS AND SUGGESTIONS: Continue current treatment. We will follow through another x-rays tomorrow. Hopefully, there is no leak, possibly remove the chest tube. JOB# [id number]
[2018-08-28 05:18] LABS: ANION GAP 11.4 (7.0-16.0); BUN - UREA NITROGEN 30 mg/dL (7-25); CALCIUM SERUM 8.6 mg/dL (8.6-10.3); CARBON DIOXIDE 26.7 mEq/L (21.0-31.0); CHLORIDE 108 mEq/L (98-107); CREATININE - SERUM 0.5 mg/dL (0.6-1.2); GLUCOSE 102 mg/dL (70-105); POTASSIUM SERUM 4.1 mEq/L (3.5-5.1); SODIUM SERUM 142 mEq/L (136-145)
--- NOTE | 2018-08-28 05:24 | General Progress Note ---
Subjective - Review of Systems Service Date: 08/28/18 Subjective: No complains Objective - Results Result Diagrams: 08/27/18 04:50 08/28/18 04:30 Recent Labs: Laboratory Last Values WBC 13.9 Th/cmm (4.8-10.8) H 08/27/18 04:50 RBC 4.66 Mil/cmm (3.80-5.20) 08/27/18 04:50 Hgb 13.2 gm/dL (12-16) 08/27/18 04:50 Hct 39.7 % (41.0-60) L 08/27/18 04:50 MCV 85.3 fl (81-100) 08/27/18 04:50 MCH 28.3 pg (27.0-31.0) 08/27/18 04:50 MCHC Differential 33.1 pg (28.0-36.0) 08/27/18 04:50 RDW 13.0 % (11.5-20.0) 08/27/18 04:50 Plt Count 468 Th/cmm (150-400) H 08/27/18 04:50 MPV 8.4 fl 08/27/18 04:50 Neutrophils % 80.7 % (40.0-80.0) H 08/27/18 04:50 Lymphocytes % 11.2 % (20.0-50.0) L 08/27/18 04:50 Monocytes % 7.0 % (2.0-10.0) 08/27/18 04:50 Eosinophils % 0.8 % (0.0-5.0) 08/27/18 04:50 Basophils % 0.3 % (0.0-2.0) 08/27/18 04:50 Smear Path Review 08/23/18 04:09 PT 10.0 SECONDS (9.5-11.5) 08/22/18 09:40 INR 0.96 (0.5-1.4) 08/22/18 09:40 PTT (Actin FS) 27.0 SECONDS (26.0-38.0) 08/19/18 12:16 D-Dimer 1600 ng/mL (100-400) H 08/19/18 12:16 Specimen Source ARTERIAL 08/21/18 09:20 Sample Site Right Radial 08/21/18 09:20 pH 7.40 (7.35-7.45) 08/21/18 09:20 pCO2 41.0 mmHg (35.0-45.0) 08/21/18 09:20 pO2 90.0 mmHg (80.0-100.0) 08/21/18 09:20 HCO3 25.0 mEq/L (20.0-26.0) 08/21/18 09:20 Base Excess 0.4 mEq/L (-3.0-3.0) 08/21/18 09:20 O2 Saturation 97.0 % (92.0-100.0) 08/21/18 09:20 James Test Y 08/21/18 09:20 Vent Rate N/A 08/21/18 09:20 Inspired O2 28 08/21/18 09:20 Tidal Volume N/A 08/21/18 09:20 PEEP N/A 08/21/18 09:20 Pressure (ins/psv/peep) N/A 08/21/18 09:20 Critical Value DWeiTHOMPSON 08/21/18 09:20 Sodium 142 mEq/L (136-145) 08/28/18 04:30 Potassium 4.1 mEq/L (3.5-5.1) 08/28/18 04:30 Chloride 108 mEq/L (98-107) H 08/28/18 04:30 Carbon Dioxide 26.7 mEq/L (21.0-31.0) 08/28/18 04:30 Anion Gap 11.4 (7.0-16.0) 08/28/18 04:30 BUN 30 mg/dL (7-25) H 08/28/18 04:30 Creatinine 0.5 mg/dL (0.6-1.2) L 08/28/18 04:30 Est GFR ( Amer) TNP 08/28/18 04:30 Est GFR (Non-Af Amer) TNP 08/28/18 04:30 BUN/Creatinine Ratio 60.0 08/28/18 04:30 Glucose 102 mg/dL (70-105) 08/28/18 04:30 Whole Bld Lactic Acid 1.10 mmol/L (0.60-1.99) 08/19/18 12:16 Calcium 8.6 mg/dL (8.6-10.3) 08/28/18 04:30 Phosphorus 3.5 mg/dL (2.5-5.0) 08/19/18 12:16 Magnesium 1.8 mg/dL (1.9-2.7) L 08/19/18 12:16 Total Bilirubin 0.4 mg/dL (0.3-1.0) 08/22/18 09:40 AST 14 U/L (13-39) 08/22/18 09:40 ALT 9 U/L (7-52) 08/22/18 09:40 Alkaline Phosphatase 68 U/L (34-104) 08/22/18 09:40 Troponin I 0.01 ng/mL (0.01-0.05) 08/19/18 12:16 B-Natriuretic Peptide 128.0 pg/mL (5.0-100.0) H 08/19/18 12:16 Total Protein 5.5 gm/dL (6.0-8.3) L 08/22/18 09:40 Albumin 2.7 gm/dL (3.7-5.3) L 08/22/18 09:40 Globulin 2.8 gm/dL 08/22/18 09:40 Albumin/Globulin Ratio 1.0 (1.0-1.8) 08/22/18 09:40 Carcinoembryonic Ag 5.6 ng/mL (0.0-4.7) H 08/20/18 19:27 CA 19-9 Antigen SEE REF. LAB REPORT 08/20/18 19:27 CA 27-29 Serial Monitr SEE REF. LAB REPORT 08/20/18 19:27 CA 125 Antigen SEE REF. LAB REPORT 08/20/18 19:27 Urine Source MIDSTREAM 08/19/18 15:30 Urine Color YELLOW 08/19/18 15:30 Urine Clarity HAZY (CLEAR) 08/19/18 15:30 Urine pH 7.0 (4.6 - 8.0) 08/19/18 15:30 Ur Specific [place] 1.010 (1.005-1.030) 08/19/18 15:30 Urine Protein NEGATIVE mg/dL (NEGATIVE) 08/19/18 15:30 Urine Glucose (UA) NEGATIVE mg/dL (NEGATIVE) 08/19/18 15:30 Urine Ketones 40 mg/dL (NEGATIVE) H 08/19/18 15:30 Urine Blood NEGATIVE (NEGATIVE) 08/19/18 15:30 Urine Nitrate POSITIVE (NEGATIVE) H 08/19/18 15:30 Urine Bilirubin NEGATIVE (NEGATIVE) 08/19/18 15:30 Urine Urobilinogen 0.2 E.U./dL (0.2 - 1.0) 08/19/18 15:30 Ur Leukocyte Esterase TRACE (NEGATIVE) H 08/19/18 15:30 Urine RBC 0-2 /hpf (0-5) 08/19/18 15:30 Urine WBC 6-10 /hpf (0-5) H 08/19/18 15:30 Ur Epithelial Cells FEW /lpf (FEW) 08/19/18 15:30 Urine Bacteria MANY /hpf (NONE SEEN) H 08/19/18 15:30 - Physical Exam Vitals and I&O: Vital Signs Temp 98.7 F 08/28/18 04:00 Pulse 79 08/28/18 04:00 Resp 18 08/28/18 04:00 BP 154/65 08/28/18 04:00 Pulse Ox 96 08/28/18 04:00 Intake & Output 08/27/18 08/27/18 08/28/18 06:59 18:59 06:59 Intake Total 320 800 Output Total 282 30 Balance 38 770 Weight (lbs) 58.06 kg 60.328 kg Intake: Oral 320 800 Output: Chest Tube Drainage 282 Left Lateral Chest 282 Other 30 Other: # Voids 3 3 # Bowel Movements 0 0 Stool Characteristics Soft Soft Weight Source Bedscale Bedscale Active Medications: Current Medications Acetaminophen (Tylenol) 650 mg PO Q6H PRN PRN Reason: PAIN Stop: 10/26/18 16:19 Last Admin: 08/27/18 16:46 Dose: 650 mg Albuterol Sulfate (Albuterol 2.5mg/3ml Neb Ud) 2.5 mg HHN Q2H PRN PRN Reason: Respiratory Distress Stop: 10/19/18 17:38 Last Admin: 08/20/18 19:17 Dose: 2.5 mg Albuterol/Ipratropium (Duoneb Neb) 3 ml HHN [id number] [facility] Stop: 10/19/18 18:59 Last Admin: 08/27/18 19:26 Dose: 3 ml Budesonide (Pulmicort) 0.5 mg HHN BIDRT [facility] Stop: 10/19/18 18:59 Last Admin: 08/27/18 19:26 Dose: 0.5 mg Hydralazine HCl (Apresoline 20 Mg/Ml) 10 mg IV Q6HR PRN PRN Reason: SBP ABOVE 170 Stop: 10/19/18 17:33 Last Admin: 08/26/18 08:25 Dose: 10 mg Metoprolol Tartrate (Lopressor) 25 mg PO BID [facility] Stop: 10/19/18 17:44 Last Admin: 08/27/18 16:46 Dose: 25 mg Pantoprazole Sodium (Protonix) 40 mg PO QDAC [facility] Stop: 10/20/18 07:29 Last Admin: 08/27/18 06:33 Dose: 40 mg General: Alert Cardiovascular: Regular rate Lungs: Other (rales, left chest tube) - Procedures Procedures: Procedures Procedure Code Date DRAINAGE OF L PLEURAL CAV WITH DRAIN DEV, OPEN APPROACH [id number] 08/19/18 Assessment/Plan - Plan Plan: Pathology reviewed; stage IV lung cancer. s/p doxycycline pleurodesis Will remove chest tube today Keep dressing intact x 72 hrs Followup with oncology for chemotherapy Will sign off. Reconsult prn. Nutritional Asmnt/Malnutr-PDOC - Dietary Evaluation Malnutrition Findings (Please click <Entered> for more info): Nutritional Asmnt/Malnutrition Start: 08/23/18 16: 26 Text: Status: Complete Freq: Protocol: Document 08/23/18 16:26 LCHENG (Rec: 08/23/18 16:39 LCHENG [email or web address]) Nutritional Asmnt/Malnutrition Patient General Information Nutritional Screening Moderate Risk Diagnosis PNA, LT plueral effusion Pertinent Medical Hx/Surgical Hx HTN Subjective Information Pt seen sitting up in bed at time of visit, having lunch, [place] speaking. Family at bedside helped translation. Family stated pt has been eating better, appetite improved. Pt denied chewing or swallowing difficulty on current food texture. Food preference provided to RD. Per EMR, PO intake 50%. Current Diet Order/ Nutrition Support low sodium Pertinent Medications protonix, piperacillin Pertinent Labs 2/6 BUN 27, Glucose 121 Nutritional Hx/Data Height 1.6 m Height (Calculated Centimeters) 160.0 Current Weight (lbs) 51.256 kg Weight (Calculated Kilograms) 51.3 Weight (Calculated Grams) 72710.9 [place] Body Weight 115 Body Mass Index (BMI) 20.0 Weight Status Approriate GI Symptoms GI Symptoms None Last BM none Difficult in: None Skin Integrity/Comment: intact Current %PO Fair (50-74%) Estimated Nutritional Goals BEE in Kcals: Using Current wt Calories/Kcals/Kg 25-30 Kcals Calculated 2799-2096 Protein: Using Current wt Protein g/k Protein Calculated 51 Fluid: ml 1275-1530ml (1ml/kcal) Nutritional Problem 1. Problem Problem inadequate food intake Etiology decreased appetite Signs/Symptoms: PO intake 50% - improving Malnutrition Alert Is there a minimum of two criteria No selected? Query Text:Check all the applicable criteria. A minimum of two criteria are recommended for diagnosis of either severe or non-severe malnutrition. Malnutrition Related to Morbid Obesity Malnutrition related to morbid obesity No Intervention/Recommendation Comments 1. Continue with low sodium diet as ordered. Encouraged food intake. 2. Monitor PO intake, wt, labs and skin integrity 3. F/U as high risk in 2-3 days Expected Outcomes/Goals Expected Outcomes/Goals 1. PO intake to meet at least 75% of nutritional needs. 2. Wt stability, skin to remain intact, labs to approach WNL.
[2018-08-28] MEDS: Pantoprazole 40 mg EC Tab PO SCH (06:39)
[2018-08-28] MEDS: Budesonide 0.5 Mg/2 mL Ud HHN SCH (07:02)
[2018-08-28] MEDS: Albuterol/Ipratropium Neb 3 ML AERS HHN SCH ×3 (07:02→14:34)
--- NOTE | 2018-08-28 07:28 | Diagnostic Imaging Report ---
Portable chest x-ray HISTORY: Shortness of breath Compared with the prior exam of August 27, 2018, the left chest tube has been removed. There is persistent abnormal density throughout the left hemithorax associated with both pleural and parenchymal components. Little overall change. IMPRESSION: 1. Status post removal left chest tube 2. Little change in the pulmonary status as described above.
--- NOTE | 2018-08-28 19:49 | Progress Notes ---
DATE: 08/28/2018 PULMONARY PROGRESS NOTE PROBLEM LIST: 1. 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 2. Status post chemical pleurodesis. SYMPTOMS: Nil. Removed chest tube today. No respiratory distress, et cetera. PHYSICAL EXAMINATION: VITAL SIGNS: Temperature is 97.3, respiration 18, room air saturation 98%. ENT: Shows no new changes. CHEST: Shows diminished air entry at the bases, otherwise unremarkable. HEART: Regular. ABDOMEN: Soft, nontender. IMAGING: Chest x-ray shows some haziness with lesion in the left upper lobe region. IMPRESSION: The patient is clinically stable post chemical pleurodesis. Plans as okay. Pulmonary to discharge and follow up with oncologist. JOB# [id number]
--- NOTE | 2018-08-28 20:28 | General Progress Note ---
Subjective - Review of Systems Service Date: 08/28/18 Subjective: Patient feels good family was at the bedside Objective - Results Result Diagrams: 08/27/18 04:50 08/28/18 04:30 Recent Labs: Laboratory Last Values WBC 13.9 Th/cmm (4.8-10.8) H 08/27/18 04:50 RBC 4.66 Mil/cmm (3.80-5.20) 08/27/18 04:50 Hgb 13.2 gm/dL (12-16) 08/27/18 04:50 Hct 39.7 % (41.0-60) L 08/27/18 04:50 MCV 85.3 fl (81-100) 08/27/18 04:50 MCH 28.3 pg (27.0-31.0) 08/27/18 04:50 MCHC Differential 33.1 pg (28.0-36.0) 08/27/18 04:50 RDW 13.0 % (11.5-20.0) 08/27/18 04:50 Plt Count 468 Th/cmm (150-400) H 08/27/18 04:50 MPV 8.4 fl 08/27/18 04:50 Neutrophils % 80.7 % (40.0-80.0) H 08/27/18 04:50 Lymphocytes % 11.2 % (20.0-50.0) L 08/27/18 04:50 Monocytes % 7.0 % (2.0-10.0) 08/27/18 04:50 Eosinophils % 0.8 % (0.0-5.0) 08/27/18 04:50 Basophils % 0.3 % (0.0-2.0) 08/27/18 04:50 Smear Path Review 08/23/18 04:09 PT 10.0 SECONDS (9.5-11.5) 08/22/18 09:40 INR 0.96 (0.5-1.4) 08/22/18 09:40 PTT (Actin FS) 27.0 SECONDS (26.0-38.0) 08/19/18 12:16 D-Dimer 1600 ng/mL (100-400) H 08/19/18 12:16 Specimen Source ARTERIAL 08/21/18 09:20 Sample Site Right Radial 08/21/18 09:20 pH 7.40 (7.35-7.45) 08/21/18 09:20 pCO2 41.0 mmHg (35.0-45.0) 08/21/18 09:20 pO2 90.0 mmHg (80.0-100.0) 08/21/18 09:20 HCO3 25.0 mEq/L (20.0-26.0) 08/21/18 09:20 Base Excess 0.4 mEq/L (-3.0-3.0) 08/21/18 09:20 O2 Saturation 97.0 % (92.0-100.0) 08/21/18 09:20 James Test Y 08/21/18 09:20 Vent Rate N/A 08/21/18 09:20 Inspired O2 28 08/21/18 09:20 Tidal Volume N/A 08/21/18 09:20 PEEP N/A 08/21/18 09:20 Pressure (ins/psv/peep) N/A 08/21/18 09:20 Critical Value DWeiTHOMPSON 08/21/18 09:20 Sodium 142 mEq/L (136-145) 08/28/18 04:30 Potassium 4.1 mEq/L (3.5-5.1) 08/28/18 04:30 Chloride 108 mEq/L (98-107) H 08/28/18 04:30 Carbon Dioxide 26.7 mEq/L (21.0-31.0) 08/28/18 04:30 Anion Gap 11.4 (7.0-16.0) 08/28/18 04:30 BUN 30 mg/dL (7-25) H 08/28/18 04:30 Creatinine 0.5 mg/dL (0.6-1.2) L 08/28/18 04:30 Est GFR ( Amer) TNP 08/28/18 04:30 Est GFR (Non-Af Amer) TNP 08/28/18 04:30 BUN/Creatinine Ratio 60.0 08/28/18 04:30 Glucose 102 mg/dL (70-105) 08/28/18 04:30 Whole Bld Lactic Acid 1.10 mmol/L (0.60-1.99) 08/19/18 12:16 Calcium 8.6 mg/dL (8.6-10.3) 08/28/18 04:30 Phosphorus 3.5 mg/dL (2.5-5.0) 08/19/18 12:16 Magnesium 1.8 mg/dL (1.9-2.7) L 08/19/18 12:16 Total Bilirubin 0.4 mg/dL (0.3-1.0) 08/22/18 09:40 AST 14 U/L (13-39) 08/22/18 09:40 ALT 9 U/L (7-52) 08/22/18 09:40 Alkaline Phosphatase 68 U/L (34-104) 08/22/18 09:40 Troponin I 0.01 ng/mL (0.01-0.05) 08/19/18 12:16 B-Natriuretic Peptide 128.0 pg/mL (5.0-100.0) H 08/19/18 12:16 Total Protein 5.5 gm/dL (6.0-8.3) L 08/22/18 09:40 Albumin 2.7 gm/dL (3.7-5.3) L 08/22/18 09:40 Globulin 2.8 gm/dL 08/22/18 09:40 Albumin/Globulin Ratio 1.0 (1.0-1.8) 08/22/18 09:40 Carcinoembryonic Ag 5.6 ng/mL (0.0-4.7) H 08/20/18 19:27 CA 19-9 Antigen SEE REF. LAB REPORT 08/20/18 19:27 CA 27-29 Serial Monitr SEE REF. LAB REPORT 08/20/18 19:27 CA 125 Antigen SEE REF. LAB REPORT 08/20/18 19:27 Urine Source MIDSTREAM 08/19/18 15:30 Urine Color YELLOW 08/19/18 15:30 Urine Clarity HAZY (CLEAR) 08/19/18 15:30 Urine pH 7.0 (4.6 - 8.0) 08/19/18 15:30 Ur Specific [place] 1.010 (1.005-1.030) 08/19/18 15:30 Urine Protein NEGATIVE mg/dL (NEGATIVE) 08/19/18 15:30 Urine Glucose (UA) NEGATIVE mg/dL (NEGATIVE) 08/19/18 15:30 Urine Ketones 40 mg/dL (NEGATIVE) H 08/19/18 15:30 Urine Blood NEGATIVE (NEGATIVE) 08/19/18 15:30 Urine Nitrate POSITIVE (NEGATIVE) H 08/19/18 15:30 Urine Bilirubin NEGATIVE (NEGATIVE) 08/19/18 15:30 Urine Urobilinogen 0.2 E.U./dL (0.2 - 1.0) 08/19/18 15:30 Ur Leukocyte Esterase TRACE (NEGATIVE) H 08/19/18 15:30 Urine RBC 0-2 /hpf (0-5) 08/19/18 15:30 Urine WBC 6-10 /hpf (0-5) H 08/19/18 15:30 Ur Epithelial Cells FEW /lpf (FEW) 08/19/18 15:30 Urine Bacteria MANY /hpf (NONE SEEN) H 08/19/18 15:30 - Physical Exam Vitals and I&O: Vital Signs Temp 97.3 F 08/28/18 18:31 Pulse 90 08/28/18 18:31 Resp 18 08/28/18 18:31 BP 155/69 08/28/18 18:31 Pulse Ox 96 08/28/18 18:31 Intake & Output 08/28/18 08/28/18 08/29/18 06:59 18:59 06:59 Intake Total 220 Output Total 3 Balance 217 Weight (lbs) 57.516 kg Intake: Oral 220 Output: Stool 3 Other: # Voids 4 Stool Characteristics Soft Soft Liquid Weight Source Bedscale General: Alert Cardiovascular: Regular rate Lungs: Other (few rale left side) Abdomen: Soft, no Tender - Procedures Procedures: Procedures Procedure Code Date DRAINAGE OF L PLEURAL CAV WITH DRAIN DEV, OPEN APPROACH [id number] 08/19/18 Assessment/Plan - Assessment Assessment: Adenocarcinoma of Left lung stage 4 Pneumothorax s/o Left sided chest tube - removed HTN Weakness - Plan Plan: Pulmonary and CT surgery cleared patient for home discharge DC home today Advised to follow up ONCOLOGY in 1-2 weeks Follow up with PCP in one week advised Nutritional Asmnt/Malnutr-PDOC - Dietary Evaluation Malnutrition Findings (Please click <Entered> for more info): Nutritional Asmnt/Malnutrition Start: 08/23/18 16: 26 Text: Status: Complete Freq: Protocol: Document 08/23/18 16:26 [email or web address] (Rec: 08/23/18 16:39 LCHENG [email or web address]) Nutritional Asmnt/Malnutrition Patient General Information Nutritional Screening Moderate Risk Diagnosis PNA, LT plueral effusion Pertinent Medical Hx/Surgical Hx HTN Subjective Information Pt seen sitting up in bed at time of visit, having lunch, Yi speaking. Family at bedside helped translation. Family stated pt has been eating better, appetite improved. Pt denied chewing or swallowing difficulty on current food texture. Food preference provided to RD. Per EMR, PO intake 50%. Current Diet Order/ Nutrition Support low sodium Pertinent Medications protonix, piperacillin Pertinent Labs 2/6 BUN 27, Glucose 121 Nutritional Hx/Data Height 1.6 m Height (Calculated Centimeters) 160.0 Current Weight (lbs) 51.256 kg Weight (Calculated Kilograms) 51.3 Weight (Calculated Grams) 72803.9 [place] Body Weight 115 Body Mass Index (BMI) 20.0 Weight Status Approriate GI Symptoms GI Symptoms None Last BM none Difficult in: None Skin Integrity/Comment: intact Current %PO Fair (50-74%) Estimated Nutritional Goals BEE in Kcals: Using Current wt Calories/Kcals/Kg 25-30 Kcals Calculated 7931-3439 Protein: Using Current wt Protein g/k Protein Calculated 51 Fluid: ml 1275-1530ml (1ml/kcal) Nutritional Problem 1. Problem Problem inadequate food intake Etiology decreased appetite Signs/Symptoms: PO intake 50% - improving Malnutrition Alert Is there a minimum of two criteria No selected? Query Text:Check all the applicable criteria. A minimum of two criteria are recommended for diagnosis of either severe or non-severe malnutrition. Malnutrition Related to Morbid Obesity Malnutrition related to morbid obesity No Intervention/Recommendation Comments 1. Continue with low sodium diet as ordered. Encouraged food intake. 2. Monitor PO intake, wt, labs and skin integrity 3. F/U as high risk in 2-3 days Expected Outcomes/Goals Expected Outcomes/Goals 1. PO intake to meet at least 75% of nutritional needs. 2. Wt stability, skin to remain intact, labs to approach WNL.
== END 2018-08-28 20:00 | disposition home or self-care (01) | DRG 180 ==
LOC: ER 11:43 → ICU 14:58 → TELE 08-23 07:08
PROVIDERS: ADMIT Family Medicine; ATTEND Family Medicine
PROC: 0W9B00Z Drainage of Left Pleural Cavity with Drainage Device, Open Approach (ICD-10-PCS; principal; 2018-08-19)
PROC: 3E0T3BZ Introduction of Anesthetic Agent into Peripheral Nerves and Plexi, Percutaneous Approach (ICD-10-PCS; 2018-08-19)
PROC: 0BBL3ZX Excision of Left Lung, Percutaneous Approach, Diagnostic (ICD-10-PCS; 2018-08-21)
DX: C34.92 Malignant neoplasm of unspecified part of left bronchus or lung (principal); J18.9 Pneumonia, unspecified organism; N39.0 Urinary tract infection, site not specified; J98.11 Atelectasis; J93.9 Pneumothorax, unspecified; J91.0 Malignant pleural effusion; I10 Essential (primary) hypertension; D47.3 Essential (hemorrhagic) thrombocythemia; Z90.710 Acquired absence of both cervix and uterus
CPT/HCPCS: 36415-UA; 36600-90; 71045-TC; 71260-TC; 71275-TC; 77012-TC; 80048-TC; 80053-TC; 81001-TC; 82378-90; 82803-TC; 83605; 83735-TC; 83880-TC; 84100-TC; 84484-TC; 85025-TC; 85379-TC; 85610-TC; 86300-90; 86301-90; 86304-90; 87070; 87070-90; 87075-90; 87086-90; 87102-90; 87205-90; 87206-90; 90799; 93005; 94640; 94760; 96375; 96376; 97530; A4217; J0360; J0696; J2001; J2270; J2543; J7030; J7040; J7613; Q9967; X3904; X6118; X7704; Z7610